=== PATIENT | male | born 1945 | race Caucasian/White ===

== ENCOUNTER 2017-12-19 02:02 | Emergency (ER) | payer OTHER ==
[~2017-12-19] VITALS: Ht 172.7 cm; Wt 81.6 kg
--- NOTE | 2017-12-19 02:04 | NUR ---
PT GUNNAR BLS. TAKEN TO BED 10
[2017-12-19 02:05] VITALS: BP 130/78
--- NOTE | 2017-12-19 02:05 | NUR ---
72/M BIBA W C/O " I CANNOT STOP SHAKING". PT STATES " I CANNOT STOP SHAKING AND I FEEL LIKE IM GOING TO PASS OUT". NO ACUTE RESPIRATORY DISTRESS NOTED AT THIS TIME. -STROKE SYMPTOMS, DENIES SOB/CP/COUGH, DENIES N/V/D. ACCUCHECK AT 155, ER MADE AWARE. PMH: DM, COPD, DEPRESSION
--- NOTE | 2017-12-19 02:30 | NUR ---
Patient being evaluated by physician at bedside.
--- NOTE | 2017-12-19 02:50 | NUR ---
Patient discharged with v/s stable. Written and verbal after care instructions given and explained. Patient alert, oriented and verbalized understanding of instructions. Ambulatory with steady gait. All questions addressed prior to discharge. ID band removed. Patient advised to follow up with PMD. Rx of COGENTIN given. Patient educated on indication of medication including possible reaction and side effects. Opportunity to ask questions provided and answered.
[2017-12-19 03:03] VITALS: BP 123/76
== END 2017-12-19 02:50 | disposition home or self-care (01) ==
LOC: MED 02:02
DX: R25.1 Tremor, unspecified (principal); J44.9 Chronic obstructive pulmonary disease, unspecified; F17.210 Nicotine dependence, cigarettes, uncomplicated; E11.9 Type 2 diabetes mellitus without complications; Z88.5 Allergy status to narcotic agent; Z88.8 Allergy status to other drugs, medicaments and biological substances
CPT/HCPCS: 82948; 99283

== ENCOUNTER 2018-01-19 17:54 | Inpatient (IN) | payer OTHER ==
[~2018-01-19] VITALS: Ht 172.7 cm; Wt 80.7 kg
[2018-01-19 18:05] VITALS: BP 114/69
[2018-01-19] MEDS ORDERED: IPRATROPIUM 0.02% 0.5 MG/2.5 ML NEBU INH ONE (18:25)
[2018-01-19] MEDS ORDERED: methylPREDNISolone SS 125 MG/2 ML VIAL IVP ONE (18:25)
[2018-01-19] MEDS ORDERED: ALBUTEROL 0.083% 2.5 MG/3 ML NEBU INH ONE (18:25)
[2018-01-19] MEDS ORDERED: NACL 0.9% 500 ML IV SCH (18:25)
--- NOTE | 2018-01-19 18:35 | NUR ---
PATIENT BIB EMS WITH COUGH, SOB, ANXIETY X 2 DAYS WORSE TODAY, HX; DM, ANXIETY AAOX4; SOB, RHOCHI LUNG SOUNDS, COUGHING NOTED, O2 SAT 96%, HR EVEN AND REGULAR; PT DENIES ANY FEVER, CP, AT THIS TIME; DENIES PAIN, VSS, DENIES N/V/D; SKIN IS PINK/WARM/DRY; PATIENT POSITIONED FOR COMFORT; HOB ELEVATED; BEDRAILS UP X2; BED DOWN. ER MD MADE AWARE OF PT STATUS.
--- NOTE | 2018-01-19 18:40 | NUR ---
Patient being evaluated by physician at bedside.
--- NOTE | 2018-01-19 18:45 | NUR ---
PT REFUSED ABG. SARAHI WINTERS AWARE. HHN TX GIVEN. CLEAR BS. NO SOB OR DISTRESS NOTED.
--- NOTE | 2018-01-19 18:49 | NUR ---
PT TOOK OFF HHN TX AND DIDNT FINISHE IT. PT SAID HE WANTS TO THROW UP. EMT AT BEDSIDE.
[2018-01-19 18:57] LABS: BASOPHILS # (AUTO) 0.4 K/uL (0.00-0.22); EOSINOPHILS # (AUTO) 0.2 K/uL (0-0.4); HEMATOCRIT 46.8 % (36-52); HEMOGLOBIN 15.2 g/dL (12.0-18.0); LYMPHOCYTES # (AUTO) 2.2 K/uL (2.0-11.5); MEAN CORPUSCULAR HEMOGLOBIN 29 pg (27-31); MEAN CORPUSCULAR HGB CONC 33 g/dL (33-37); MEAN CORPUSCULAR VOLUME 88 fL (80-94); MONOCYTES # (AUTO) 0.7 K/uL (0.8-1.0); NEUTROPHILS # (AUTO) 8.2 K/uL (1.8-7.7); PLATELET COUNT (AUTO) 315 K/uL (140-450); RED CELL DISTRIBUTION WIDTH 14.6 % (11.6-13.7); WHITE BLOOD COUNT (AUTO) 11.7 K/uL (4.8-10.8)
[2018-01-19 19:11] LABS: CARBON DIOXIDE 24.6 mmol/L (21-32); CHLORIDE 104 mmol/L (98-107); CREATININE 1.2 mg/dL (0.7-1.3); GLUCOSE 156 mg/dL (74-106); POTASSIUM 3.6 mmol/L (3.5-5.1); SODIUM SERUM 139 mmol/L (136-145); UREA NITROGEN, BLOOD 23 mg/dL (7-18)
[2018-01-19 19:16] LABS: ALBUMIN 3.4 g/dL (3.4-5.0); ASPARTATE AMINOTRANSFERASE 20 U/L (15-37); TOTAL BILIRUBIN 0.5 mg/dL (0.0-1.0)
--- NOTE | 2018-01-19 19:20 | NUR ---
RECEIVED REPORT FROM SARAHI MENG. PT RESTING IN BED COMFORTABLY, RESPIRATIONS EVEN AND UNLABORED, NO S/S OF ACUTE DISTRESS.
[2018-01-19 19:40] LABS: PROTHROMBIN TIME 9.7 secs (10.8-13.4)
[2018-01-19] MEDS ORDERED: ASPIRIN 81 MG TAB.CHEW PO ONE (19:45)
[2018-01-19] MEDS ORDERED: ASPIRIN 81 MG TAB.CHEW ONE (20:00)
[2018-01-19] MEDS ORDERED: DOCUSATE SODIUM 100 MG GELCAP PO PRN (20:45)
[2018-01-19] MEDS ORDERED: HYDROcodone/APAP 7.5/325 MG 1 TAB PO PRN (20:45)
[2018-01-19] MEDS ORDERED: KETOROLAC 30 MG/ML VIAL IVP PRN (20:45)
[2018-01-19] MEDS ORDERED: ONDANSETRON 4 MG/2 ML VIAL IM/IVP PRN (20:45)
[2018-01-19] MEDS ORDERED: ACETAMINOPHEN 325 MG TAB PO PRN (20:45)
--- NOTE | 2018-01-19 20:57 | NUR ---
Dr. Berrios evaluating patient at bedside.
--- NOTE | 2018-01-19 21:00 | NUR ---
PT STATED HE WAS UNABLE TO PROVIDE URINE SAMPLE AT THIS TIME, WILL ENDORSE TO ABA RN
--- NOTE | 2018-01-19 21:10 | NUR ---
Patient will be admitted to care of [facility]. Admited to TELE. Will go to room 120B. Belongings list completed. Report to SARAHI MÉNDEZ AT BEDSIDE
[2018-01-19 21:20] VITALS: BP 148/68
--- NOTE | 2018-01-19 21:20 | NUR ---
ADMITTED PATIENT TO TELE UNIT, AWAKE ALERT ORIENTEDX4, NO S/S OF DISTRESS NOTED, RESPIRATION EVEN AND UNLABORED, ON ROOM AIR. TELE MONITOR PLACED ON PATIENT. IV ON RT WRIST PATENT AND INTACT, FLUSHED WITH 10CC NS. PLAN OF CARE DISCUSSED, PATIENT VERBALIZED UNDERSTANDING. CALL LIGHT WITHIN REACH, SAFETY MEASURE ENSURED, WILL CONTINUE TO MONITOR.
[2018-01-19] MEDS ORDERED: ALBUTEROL SULFATE/IPRATROPIU 3 ML SOL IH PRN (21:35)
[2018-01-19 21:36] LABS: CHOL/HDL RATIO 7.5 (1-4.5); MAGNESIUM 2.1 mg/dL (1.8-2.4); PHOSPHORUS 3.1 mg/dL (2.5-4.9); THYROID STIMULATING HORMONE 1.74 uIU/mL (0.34-3.74)
[2018-01-19] MEDS ORDERED: DEXTROSE 50% 50 ML SYR IVP PRN (21:45)
[2018-01-19] MEDS ORDERED: ZOLPIDEM 5 MG TAB PO SCH (22:20)
[2018-01-19] MEDS: NACL 0.9% 1,000 ML IV SCH (22:24)
[2018-01-20] VITALS: BP 139/79
--- NOTE | 2018-01-20 01:33 | NUR ---
PATIENT ASKED FOR FOOD, SANDWICH OFFERED. NO S/S OF DISTRESS NOTED, RESPIRATION EVEN AND UNLABORED, CALL LIGHT WITHIN REACH, SAFETY MEASURE ENSURED, WILL CONTINUE TO MONITOR.
--- NOTE | 2018-01-20 03:50 | NUR ---
PATIENT IS SLEEPING, NO S/S OF DISTRESS NOTED, RESPIRATION EVEN AND UNLABORED, CALL LIGHT WITHIN REACH, SAFETY MEASURE ENSURED, WILL CONTINUE TO MONITOR.
[2018-01-20 04:00] VITALS: BP 149/73
[2018-01-20] MEDS: NACL 0.9% 1,000 ML IV SCH ×3 (04:09→21:16)
[2018-01-20] MEDS: LORazepam 2 MG/ML VIAL IVP PRN ×3 (05:12→15:54)
--- NOTE | 2018-01-20 05:15 | NUR ---
STATED," I AM HAVING ANXIETY ATTACK." MADE DR. FERNANDEZ AWARE. RECEIVED ORDER OF ATIVAN. WILL ADMINISTER ORDERED.
[2018-01-20 06:15] LABS: BASOPHILS # (AUTO) 0.1 K/uL (0.00-0.22); BASOPHILS % (AUTO) 0.7 % (0.0-2.0); EOSINOPHILS # (AUTO) 0.1 K/uL (0-0.4); EOSINOPHILS % (AUTO) 0.7 % (0.0-4.0); HEMATOCRIT 42.3 % (36-52); LYMPHOCYTES # (AUTO) 0.8 K/uL (2.0-11.5); LYMPHOCYTES % (AUTO) 8.3 % (20.5-51.1); MEAN CORPUSCULAR HEMOGLOBIN 29 pg (27-31); MEAN CORPUSCULAR HGB CONC 33 g/dL (33-37); MEAN CORPUSCULAR VOLUME 89 fL (80-94); MONOCYTES % (AUTO) 0.5 % (1.7-9.3); NEUTROPHILS # (AUTO) 8.4 K/uL (1.8-7.7); NEUTROPHILS % (AUTO) 89.8 % (42.2-75.2); PLATELET COUNT (AUTO) 312 K/uL (140-450); RED BLOOD CELL COUNT(AUTO) 4.75 MIL/uL (4.20-6.10); RED CELL DISTRIBUTION WIDTH 14.2 % (11.6-13.7); WHITE BLOOD COUNT (AUTO) 9.4 K/uL (4.8-10.8)
[2018-01-20 07:20] LABS: APPEARANCE,URINE CLEAR (CLEAR); BILIRUBIN,URINE NEGATIVE (NEGATIVE); BLOOD, URINE NEGATIVE (NEGATIVE); COLOR,URINE YELLOW (YELLOW); LEUKOCYTE ESTERASE ,URINE NEGATIVE (NEGATIVE); NITRITE, URINE NEGATIVE (NEGATIVE); UGLUCOSE NEGATIVE (NEGATIVE)
--- NOTE | 2018-01-20 07:20 | NUR ---
ENDORSED PLAN OF CARE TO DAY SHIFT RN, PATIENT IS IN STABLE CONDITION.
--- NOTE | 2018-01-20 07:21 | NUR ---
RECEIVED REPORT FROM BUTADIENE CONVERTER UTILITY OPERATOR NURSE HONEY AT BEDSIDE FOR CONTINUITY OF CARE. PT IS AWAKE AND ORIENTED X4. INTRODUCED SELF AND UPDATED BOARD. NO SIGNS OF RESPIRATORY DISTRESS. PT ON RA. O2 SAT 95%. DENIES SOB. PTS STATED "I AM BREATHING MUCH BETTER NOW." R/T CAME IN FOR BREATHING TX. PT REFUSED TX STATED "HE IS DOING FINE" DENIES PAIN. PT GOT UP TO USE RESTROOM. WALKED WITH STEADY GAIT AND STANDBY ASSIST. CALL LIGHT WITHIN REACH. WILL CONTINUE TO MONITOR.
[2018-01-20] MEDS: BLOOD GLUCOSE MONITORING 1 DEV DEV FS SCH ×4 (07:32→20:49)
[2018-01-20] MEDS: INSULIN LISPRO SLIDING SCALE 100 UNITS/ML VIAL SUBQ PRN ×3 (07:33→20:54)
[2018-01-20 08:00] VITALS: BP 134/66
[2018-01-20] MEDS: METOPROLOL 25 MG TAB PO SCH ×2 (08:58→21:00)
[2018-01-20] MEDS: ATORVASTATIN 80 MG TAB PO SCH (08:58)
[2018-01-20] MEDS: LISINOPRIL 5 MG TAB PO SCH (08:58)
[2018-01-20] MEDS: ECOTRIN 81 MG TABEC PO SCH (08:58)
[2018-01-20] MEDS ORDERED: ATORVASTATIN 20 MG TAB PO SCH (09:00)
--- NOTE | 2018-01-20 09:02 | NUR ---
PT IS HAVING A PROCEDURE AT THIS TIME. PT IS ON RA AND NOT SOB/RESPIRATORY DISTRESS. WILL CHECK ON PRN TX ON A LATER TIME.
[2018-01-20 09:35] LABS: CARBON DIOXIDE 22.9 mmol/L (21-32); CHLORIDE 104 mmol/L (98-107); CREATININE 1.2 mg/dL (0.7-1.3); GLUCOSE 215 mg/dL (74-106); POTASSIUM 3.9 mmol/L (3.5-5.1); SODIUM SERUM 136 mmol/L (136-145); UREA NITROGEN, BLOOD 20 mg/dL (7-18)
--- NOTE | 2018-01-20 11:04 | NUR ---
PT WAS NOT SOB OR IN RESPIRATORY DISTRESS DID NOT NEED TX. SP02 97 HR 80
[2018-01-20 12:00] VITALS: BP 143/55
--- NOTE | 2018-01-20 12:36 | NUR ---
PATIENT HAS BEEN SCREENED AND CATEGORIZED HIGH NUTRITION RISK. PATIENT WILL BE SEEN WITHIN 1-2 DAYS OF ADMISSION. 01/20/18 - 01/21/[address]
--- NOTE | 2018-01-20 15:13 | NUR ---
01/20/18 RD INITIAL ASSESSMENT COMPLETED PLEASE REFER TO NUTRITION ASSESSMENT UNDER CARE ACTIVITY FOR ESTIMATED NUTRITIONAL NEEDS. 1. CONTINUE CARDIAC DIET ORDER TOLERATED 2. RECOMMEND ADDING CCHO 60 GM ONTO CURRENT DIET ORDER D/T ELEVATED GLUCOSE LEVELS 3. CONSIDER TEXTURE MODIFICATIONS PER SWALLOW EVALUATION RECOMMENDATIONS NEEDED. 4. RD TO FOLLOW-UP 3-5 DAYS, MODERATE RISK TOISN GRAY RD
[2018-01-20 16:00] VITALS: BP 115/50
--- NOTE | 2018-01-20 18:55 | NUR ---
* ST NOTE * Pt seen at bedside. Pt alert, cooperative and engaged throughout session, reporting no c/o pain at this time. Bedside dysphagia and oral mechanism exams completed. See evaluation report for further details. Pt tolerating 5/5 alternating PO trials of regular solid saltine crackers as well as 6/6 alternating PO trials of thin liquid milk via a straw, all w/o s/s of aspiration or choking. Pt exhibiting clear voicing WFL w/o wet or gargly vocal quality after PO intake. Pt education completed regarding aspiration precautions and safe swallow compensatory strategies pt could utilize to aid w/swallow function, w/pt verbalizing understanding and agreement. It is thus recommended pt remain on current PO diet consistency w/pt agreeable. No further ST follow up recommended at this time. Pt and caregivers/charge nurse education completed regarding results of evaluation; benefits of abiding by aspiration precautions and recommended PO diet consistency; and prognosis for improvement; with pt and caregivers/charge nurse verbalizing understanding and agreement w/clinician's recommendations. Recommend: - Continuation of current PO diet consistency of REGULAR SOLIDS W/THIN LIQUIDS for all meals - Maintain STRICT ASPIRATION PRECAUTIONS during pt's PO intake and PO medication administration 2/2 to pt's c/o dysphagia - Pt safe for whole pill PO medication administration or crushed in puree or m/s textures No further ST follow up recommended at this time. G8996 CI G8997 CH G8998 NOMS Level 1 Time In/Out 18:05 - 18:50
--- NOTE | 2018-01-20 19:20 | NUR ---
ENDORSED PT TO KEYBOARD ACTION ASSEMBLER NURSE HONEY AT BEDSIDE FOR CONTINUITY OF CARE. PT IN STABLE CONDITION.
--- NOTE | 2018-01-20 19:30 | NUR ---
RECEIVED REPORT FROM DAY SHIFT, PATIENT RESTING IN BED, NO S/S OF DISTRESS NOTED, RESPIRATION EVEN AND UNLABORED, ON ROOM AIR. IV PATENT AND INTACT, INFUSING NS AT 120ML/HR. PATIENT ASKED," WHEN IS MY ANXIETY MEDICATION DUE." INFORMED PATIENT THAT IT WAS DUE AROUND 1999. PATIENT SAID OKAY. CALL LIGHT WITHIN REACH, SAFETY MEASURE ENSURED, WILL CONTINUE TO MONITOR.
[2018-01-20 20:00] VITALS: BP 131/57
[2018-01-20] MEDS: ZOLPIDEM 5 MG TAB PO SCH (21:00)
--- NOTE | 2018-01-20 21:09 | NUR ---
PATIENT WAS SLEEPING, BUT EASY TO AROUSE, TOLD HIM IT WAS TIME FOR HIS NIGHT TIME MEDICATION, PATIENT SAID OKAY. OPENED MEDICATION AND CUT THE LOPRESSOR ORDERED, PUT MEDICATIONS IN PATIENT'S MOUTH, PATIENT SPIT MEDICATION OUT. PATIENT GOT UP AND WENT TO THE BATHROOM, WHEN HE CAME BACK TO BED, HE SAID," I DON'T WANT THAT." EDUCATION PROVIDED, BUT PATIENT STILL REFUSED. MADE DR. FERNANDEZ AWARE THAT PATIENT REFUSED MEDICATION AND IS SLEEPING NOW, SAID," IT'S OKAY."
--- NOTE | 2018-01-20 23:55 | NUR ---
PATIENT IS SLEEPING, NO S/S OF DISTRESS NOTED, RESPIRATION EVEN AND UNLABORED, CALL LIGHT WITHIN REACH, SAFETY MEASURE ENSURED, WILL CONTINUE TO MONITOR.
[2018-01-21] VITALS: BP 139/69
--- NOTE | 2018-01-21 02:05 | NUR ---
NO CHANGE IN CONDITION, PATIENT IS SLEEPING, RESPIRATION EVEN AND UNLABORED, CALL LIGHT WITHIN REACH, SAFETY MEASURE ENSURED, WILL CONTINUE TO MONITOR.
--- NOTE | 2018-01-21 03:01 | NUR ---
IV PUMP BEEPING, UPON ASSESSMENT, IV TUBE WAS DISCONNECTED FROM IV CATHETER, BLOOD ON THE FLOOR, AND BED. RECONNECTED IV TUBE AND CLEANED THE PATIENT. PATIENT STATED," I AM FINE. I WENT TO THE BATHROOM, I FORGOT I WAS CONNECTED." PATIENT IS SLEEPING IN BED, NO S/S OF DISTRESS NOTED, RESPIRATION EVEN AND UNLABORED, CALL LIGHT WITHIN REACH, SAFETY MEASURE ENSURED, WILL CONTINUE TO MONITOR.
[2018-01-21 04:00] VITALS: BP 143/66
[2018-01-21 06:21] LABS: T4 (THYROXINE) 6.5 ug/dL (4.5-12.0)
[2018-01-21] MEDS: BLOOD GLUCOSE MONITORING 1 DEV DEV FS SCH ×4 (06:32→20:51)
--- NOTE | 2018-01-21 07:10 | NUR ---
RECEIVED REPORT FROM TOLL TRANSMISSION WORKER NURSE HONEY AT BEDSIDE FOR CONTINUITY OF CARE. PT IS ASLEEP WITH NO SIGNS OF DISTRESS. ON RA. O2 SAT 98%. PT DENIES PAIN OR SOB. BED IN LOW POSITION, WHEELS LOCKED, CALL LIGHT WITHIN REACH. WILL CONTINUE TO MONITOR.
[2018-01-21 07:31] LABS: BASOPHILS # (AUTO) 0.4 K/uL (0.00-0.22); BASOPHILS % (AUTO) 3.3 % (0.0-2.0); EOSINOPHILS # (AUTO) 0.1 K/uL (0-0.4); EOSINOPHILS % (AUTO) 0.7 % (0.0-4.0); HEMATOCRIT 39.3 % (36-52); HEMOGLOBIN 12.8 g/dL (12.0-18.0); LYMPHOCYTES # (AUTO) 2.4 K/uL (2.0-11.5); LYMPHOCYTES % (AUTO) 17.8 % (20.5-51.1); MEAN CORPUSCULAR HEMOGLOBIN 30 pg (27-31); MEAN CORPUSCULAR HGB CONC 33 g/dL (33-37); MEAN CORPUSCULAR VOLUME 90 fL (80-94); MONOCYTES # (AUTO) 1.3 K/uL (0.8-1.0); MONOCYTES % (AUTO) 9.2 % (1.7-9.3); NEUTROPHILS # (AUTO) 9.4 K/uL (1.8-7.7); PLATELET COUNT (AUTO) 237 K/uL (140-450); RED BLOOD CELL COUNT(AUTO) 4.35 MIL/uL (4.20-6.10); RED CELL DISTRIBUTION WIDTH 14.6 % (11.6-13.7); WHITE BLOOD COUNT (AUTO) 13.6 K/uL (4.8-10.8)
[2018-01-21 08:00] VITALS: BP 144/61
[2018-01-21 08:46] LABS: ANION GAP 12.3 (8-16); CARBON DIOXIDE 22.9 mmol/L (21-32); CHLORIDE 110 mmol/L (98-107); GLUCOSE 102 mg/dL (74-106); POTASSIUM 4.2 mmol/L (3.5-5.1); SODIUM SERUM 141 mmol/L (136-145)
[2018-01-21 08:47] LABS: UREA NITROGEN, BLOOD 25 mg/dL (7-18)
--- NOTE | 2018-01-21 09:52 | NUR ---
PT OFF UNIT FOR CT SCAN. LEFT WITH TECH VIA WHEELCHAIR IN STABLE CONDITION.
[2018-01-21] MEDS: METOPROLOL 25 MG TAB PO SCH ×2 (10:14→21:00)
[2018-01-21] MEDS: LISINOPRIL 5 MG TAB PO SCH (10:14)
[2018-01-21] MEDS: ATORVASTATIN 80 MG TAB PO SCH (10:14)
[2018-01-21] MEDS: ECOTRIN 81 MG TABEC PO SCH (10:15)
--- NOTE | 2018-01-21 10:15 | NUR ---
PT RETURNED TO UNIT FROM CT. REPORT GIVEN THAT PT WAS NAUSEOUS AND VOMITED. ADMINISTERED ZOFRAN IVP FOR NAUSEA. AND ADMINISTERED SCHEDULED MEDS. PT TOLERATED MEDS WELL. PT GOT UP TO USE BATHROOM WITH STEADY GAIT. BACK TO BED. RESTING COMFORTABLY. NO SIGNS OF DISTRESS. CALL LIGHT WITHIN REACH. WILL CONTINUE TO MONITOR.
[2018-01-21 12:00] VITALS: BP 149/68
[2018-01-21] MEDS ORDERED: LORazepam 0.5 MG TAB PO SCH (12:00)
--- NOTE | 2018-01-21 12:16 | NUR ---
PT STATED HE IS FEELING ANXIOUS AND REQUESTED ATIVAN. ADMINISTERED 0.5MG ATIVAN PO. PT TOLERATED WELL. WILL CONTINUE TO MONITOR.
--- NOTE | 2018-01-21 14:00 | NUR ---
PT BACK FROM ESOPHAGRAM X-RAY. PT REFUSED TO EAT LUNCH PROVIDED. OFFERED CHICKEN SANDWICH PT REFUSED. ASKED FOR HAM SANDWICH. CALLED [facility] AND LEFT MESSAGE FOR HAM SANDWICH. PT IS NOW RESTING IN BED WATCHING TV. NO SIGNS OF DISTRESS. WILL CONTINUE TO MONITOR.
[2018-01-21 16:00] VITALS: BP 131/52
[2018-01-21] MEDS: INSULIN LISPRO SLIDING SCALE 100 UNITS/ML VIAL SUBQ PRN ×2 (17:45→20:56)
--- NOTE | 2018-01-21 19:15 | NUR ---
ENDORSED PT TO RECIPROCATING DRILL OPERATOR NURSE AILYN AT BEDSIDE FOR CONTINUITY OF CARE. PT IN STABLE CONDITION.
--- NOTE | 2018-01-21 19:16 | NUR ---
RECEIVED REPORT FROM DAY NURSE NOLAN MCCLAIN, PT IN STABLE CONDITION. NO S/S OF DISTRESS NOTED. PT AAOX4, ON ROOM AIR. IV TO L FA 22G, SALINE LOCK, PATENT AND INTACT. 2ND IV TO L FA 18G, SALINE LOCK, PATENT AND INTACT. SKIN IS WARM AND DRY TO TOUCH, INTACT. RR EVEN/UNLABORED. BOWEL SOUNDS PRESENT. INITIAL ASSESSMENT COMPLETED. PLAN OF CARE DISCUSSED WITH PT AT BEDSIDE, VERBALIZED UNDERSTANDING. ALL SAFETY PRECAUTIONS MET, CALL LIGHT WITHIN REACH, BOARD UPDATED, WILL CONTINUE TO MONITOR
[2018-01-21 20:00] VITALS: BP 126/48
[2018-01-21] MEDS: ZOLPIDEM 5 MG TAB PO SCH (20:52)
--- NOTE | 2018-01-21 22:30 | NUR ---
PT RESTING COMFORTABLY IN BED,NO S/S OF DISTRESS NOTED. ALL SAFETY PRECAUTIONS MET, WILL CONTINUE TO MONITOR.
[2018-01-22] VITALS: BP 148/68
--- NOTE | 2018-01-22 01:30 | NUR ---
PT RESTING COMFORTABLY IN BED,NO S/S OF DISTRESS NOTED. ALL SAFETY PRECAUTIONS MET, WILL CONTINUE TO MONITOR.
--- NOTE | 2018-01-22 02:11 | NUR ---
PT RESTING COMFORTABLY IN BED,NO S/S OF DISTRESS NOTED. ALL SAFETY PRECAUTIONS MET, WILL CONTINUE TO MONITOR.
[2018-01-22 04:00] VITALS: BP 136/69
[2018-01-22] MEDS: BLOOD GLUCOSE MONITORING 1 DEV DEV FS SCH ×4 (06:32→21:00)
--- NOTE | 2018-01-22 07:21 | NUR ---
REPORT GIVEN TO DAY SHIFT RN FOR CONTINUITY OF CARE, PT IN STABLE CONDITION.
--- NOTE | 2018-01-22 07:30 | NUR ---
ENDORSEMENT RECEIVED FROM WORLD LANGUAGE TEACHER NURSE. PATIENT IS AWAKE, ALERT. RESPIRATION EVEN, UNLABOR ON ROOM AIR. SKIN DRY AND WARM. IV PATENT AND INTACT. DENIED PAIN, N/V AT THIS TIME. PLAN OF CARE WAS DISCUSSED WITH PATIENT. BED AT LOW POSITION, SIDE RAILS UP, CALL LIGHT WITHIN REACH
[2018-01-22 08:00] VITALS: BP 143/64
--- NOTE | 2018-01-22 08:21 | NUR ---
PATIENT AWAKE AND ALERT. SITTING UP IN BED. PATIENT STATES NO SOB. NO RESPIRATORY DISTRESS NOTED AT THIS TIME. NO TX INDICATED AT THIS TIME.
[2018-01-22] MEDS: ATORVASTATIN 80 MG TAB PO SCH (08:47)
[2018-01-22] MEDS: ECOTRIN 81 MG TABEC PO SCH (08:48)
[2018-01-22] MEDS: METOPROLOL 25 MG TAB PO SCH ×2 (08:48→20:58)
[2018-01-22] MEDS: LISINOPRIL 5 MG TAB PO SCH (08:48)
[2018-01-22 11:10] VITALS: BP 148/64
--- NOTE | 2018-01-22 11:10 | NUR ---
PATIENT AWAKE, ALERT. COMPLAINED OF DIFFICULTY SWALLOW, DYSPNEA AND BEING "ANTSY". DR. ISABEL WAS MADE AWARE. VS WAS STABLE, NO WORK OF BREATHING IS NOTED
[2018-01-22] MEDS ORDERED: LORazepam 1 MG TAB PO SCH (11:23)
--- NOTE | 2018-01-22 11:45 | NUR ---
PATIENT IS SLEEPING COMFORTABLY, EASILY AROUSABLE BY NAME. RESPIRATION EVEN, UNLABOR ON ROOM AIR. MED WAS GIVEN PER ORDER. CALL LIGHT WITHIN REACH
[2018-01-22] MEDS: INSULIN LISPRO SLIDING SCALE 100 UNITS/ML VIAL SUBQ PRN ×2 (12:29→21:02)
[2018-01-22] MEDS ORDERED: ALBUTEROL SULFATE/IPRATROPIU 3 ML SOL IH PRN (14:10)
--- NOTE | 2018-01-22 14:29 | NUR ---
PATIENT AWAKE, ALERT, WATCHING TV COMFORTABLY IN BED. RESPIRATION EVEN, UNLABOR ON ROOM AIR. NO DISTRESS NOTED AT THIS TIME. CALL LIGHT WITHIN REACH
[2018-01-22] MEDS ORDERED: AZITHROMYCIN 250 MG TAB PO SCH (15:00)
[2018-01-22] MEDS: methylPREDNISolone SS 125 MG/2 ML VIAL IVP SCH ×2 (15:18→23:34)
[2018-01-22 15:49] VITALS: BP 116/63
--- NOTE | 2018-01-22 16:01 | NUR ---
PATIENT AWAKE, ALERT, WATCHING TV COMFORTABLY IN BED. RESPIRATION EVEN, UNLABOR. VS IS STABLE. NO DISTRESS NOTED AT THIS TIME. DENIED PAIN, N/V. CALL LIGHT WITHIN REACH
[2018-01-22] MEDS: ALBUTEROL SULFATE/IPRATROPIU 3 ML SOL IH SCH (18:00)
--- NOTE | 2018-01-22 18:20 | NUR ---
PATIENT AWAKE, ALERT. RESPIRATION EVEN, UNLABOR ON ROOM AIR. IV PATENT AND INTACT. NO DISTRESS NOTED AT THIS TIME. CALL LIGHT WITHIN REACH
[2018-01-22] MEDS ORDERED: IPRATROPIUM 0.02% 0.5 MG/2.5 ML NEBU INH SCH (19:00)
--- NOTE | 2018-01-22 19:27 | NUR ---
ENDORSEMENT GIVEN TO THE WATCHGUARD NURSE. PATIENT IS STABLE AT THIS TIME
[2018-01-22 20:00] VITALS: BP 166/67
[2018-01-22] MEDS: ZOLPIDEM 5 MG TAB PO SCH (20:58)
[2018-01-23] VITALS: BP 136/64
[2018-01-23 04:00] VITALS: BP 135/62
[2018-01-23] MEDS: methylPREDNISolone SS 125 MG/2 ML VIAL IVP SCH ×2 (06:15→20:42)
[2018-01-23] MEDS: PANTOPRAZOLE 40 MG TABEC PO SCH (06:15)
[2018-01-23] MEDS: INSULIN LISPRO SLIDING SCALE 100 UNITS/ML VIAL SUBQ PRN ×4 (06:20→20:52)
[2018-01-23] MEDS: BLOOD GLUCOSE MONITORING 1 DEV DEV FS SCH ×4 (06:39→20:48)
--- NOTE | 2018-01-23 06:41 | NUR ---
TEST DESKMAN ATTEMPTED BLOOD DRAW 4X, UNSUCCESSFUL.
--- NOTE | 2018-01-23 07:22 | NUR ---
REPORT GIVEN TO DAY SHIFT NURSE FOR CONTINUITY OF CARE, PT IN STABLE CONDITION
--- NOTE | 2018-01-23 07:30 | NUR ---
ENDORSEMENT RECEIVED FROM MERCHANDISING ASSISTANT NURSE. PATIENT IS AWAKE, ALERT. RESPIRATION EVEN, UNLABOR ON ROOM AIR. SKIN DRY AND WARM. IV PATENT AND INTACT. DENIED PAIN, N/V AT THIS TIME. PLAN OF CARE WAS DISCUSSED WITH PATIENT. BED AT LOW POSITION, SIDE RAILS UP, CALL LIGHT WITHIN REACH.
[2018-01-23] MEDS: ALBUTEROL SULFATE/IPRATROPIU 3 ML SOL IH SCH ×3 (07:51→18:00)
--- NOTE | 2018-01-23 07:51 | NUR ---
PATIENT AWAKE, ALERT AND ORIENTED. ASSESSED PATIENTS RESPIRATORY STATUS. NO RESPIRATORY DISTRESS NOTED. PATIENT REFUSED BREATHING TX. INFORMED PATIENT OF MEDICATION USE. PATIENT STATES THAT BREATHING TREATMENTS MAKE HIM VOMIT AND HE DOES NOT WANT A BREATHING TREATMENT. PATIENT STATES HE IS NOT SOB. NO RESPIRATORY DISTRESS NOTED AT THIS TIME.
[2018-01-23 08:00] VITALS: BP 123/72
[2018-01-23] MEDS: AZITHROMYCIN 250 MG TAB PO SCH (08:35)
[2018-01-23] MEDS: ATORVASTATIN 80 MG TAB PO SCH (08:35)
[2018-01-23] MEDS: METOPROLOL 25 MG TAB PO SCH ×2 (08:36→20:43)
[2018-01-23] MEDS: LISINOPRIL 5 MG TAB PO SCH (08:36)
[2018-01-23] MEDS: ECOTRIN 81 MG TABEC PO SCH (08:36)
--- NOTE | 2018-01-23 10:22 | NUR ---
CONSENT FOR EGD WAS OBTAINED AT BEDSIDE, SIGNED BY PATIENT. PATIENT VERBALIZED UNDERSTANDING FOR THE RISKS AND BENEFITS OF THE PROCEDURE.
[2018-01-23 11:39] LABS: BASOPHILS # (AUTO) 0.2 K/uL (0.00-0.22); BASOPHILS % (AUTO) 1.2 % (0.0-2.0); EOSINOPHILS # (AUTO) 0.1 K/uL (0-0.4); EOSINOPHILS % (AUTO) 0.7 % (0.0-4.0); HEMATOCRIT 43.6 % (36-52); HEMOGLOBIN 14.1 g/dL (12.0-18.0); LYMPHOCYTES # (AUTO) 1.1 K/uL (2.0-11.5); MEAN CORPUSCULAR HEMOGLOBIN 29 pg (27-31); MEAN CORPUSCULAR HGB CONC 32 g/dL (33-37); MEAN CORPUSCULAR VOLUME 88 fL (80-94); MONOCYTES # (AUTO) 0.2 K/uL (0.8-1.0); MONOCYTES % (AUTO) 1.4 % (1.7-9.3); PLATELET COUNT (AUTO) 336 K/uL (140-450); RED BLOOD CELL COUNT(AUTO) 4.93 MIL/uL (4.20-6.10); RED CELL DISTRIBUTION WIDTH 14.2 % (11.6-13.7); WHITE BLOOD COUNT (AUTO) 14.6 K/uL (4.8-10.8)
[2018-01-23 11:51] LABS: ANION GAP 10.9 (8-16); CARBON DIOXIDE 26.3 mmol/L (21-32); CHLORIDE 104 mmol/L (98-107); CREATININE 1.2 mg/dL (0.7-1.3); GLUCOSE 236 mg/dL (74-106); POTASSIUM 4.2 mmol/L (3.5-5.1); SODIUM SERUM 137 mmol/L (136-145); UREA NITROGEN, BLOOD 28 mg/dL (7-18)
[2018-01-23 11:58] LABS: PHOSPHORUS 3.1 mg/dL (2.5-4.9)
[2018-01-23 12:23] LABS: LYMPHOCYTES % (AUTO) 7.5 % (20.5-51.1); NEUTROPHILS % (AUTO) 89.2 % (42.2-75.2)
[2018-01-23 12:28] VITALS: BP 139/68
--- NOTE | 2018-01-23 12:30 | NUR ---
PATIENT AWAKE, ALERT. RESPIRATION EVEN, UNLABOR. DENIED N/V AT THIS TIME. NO DISTRESS NOTED. MED WAS GIVEN PER ORDER.
--- NOTE | 2018-01-23 13:05 | NUR ---
PATIENT QUIET AND RESTING. EASILY AROUSABLE WHEN SPOKEN TO. PATIENT REFUSING BREATHING TREATMENT. HHN NOT GIVEN AT THIS TIME. NO SOB OR RESPIRATORY DISTRESS NOTED AT THIS TIME.
--- NOTE | 2018-01-23 15:26 | NUR ---
PATIENT IS SLEEPING COMFORTABLY. RESPIRATION EVEN, UNLABOR ON ROOM AIR. NO DISTRESS NOTED AT THIS TIME.
[2018-01-23 16:00] VITALS: BP 119/59
--- NOTE | 2018-01-23 17:59 | NUR ---
PATIENT AWAKE, ALERT, EATING DINNER, AND WATCHING TV COMFORTABLY IN BED. RESPIRATION EVEN, UNLABOR ON ROOM AIR. NO SIGNS OF DISTRESS NOTED. PATIENT REQUESTED TO HAVE AN ATIVAN AND STATED " I DON'T FEEL WELL". WILL NOTIFY MD Addendum: 01/23/18 at 1828 by Karlene Lo RN DR. CORTEZ WAS MADE AWARE OF PATIENT'S REQUEST, ADVISED TO CONTINUE TO MONITOR
--- NOTE | 2018-01-23 19:06 | NUR ---
ENDORSEMENT GIVEN TO THE ASSEMBLER CARBON BRUSHES NURSE. PATIENT IS STABLE AT THIS TIME
--- NOTE | 2018-01-23 19:26 | NUR ---
PT REFUSED HHN MEDICATION TREATMENT PT IN NO RESP. DISTRESS, HR 67 RR 16 SAO2 95 ON ROOM AIR BS CLEAR
--- NOTE | 2018-01-23 19:26 | NUR ---
RECEIVED REPORT FROM DAY NURSE ORLY RN, PT IN STABLE CONDITION. NO S/S OF DISTRESS NOTED. PT AAOX4, ON ROOM AIR. IV TO L FA 22G, SALINE LOCK, PATENT AND INTACT. 2ND IV TO L FA 18G, SALINE LOCK, PATENT AND INTACT. SKIN IS WARM AND DRY TO TOUCH, INTACT. RR EVEN/UNLABORED. BOWEL SOUNDS PRESENT. INITIAL ASSESSMENT COMPLETED. PLAN OF CARE DISCUSSED WITH PT AT BEDSIDE, VERBALIZED UNDERSTANDING. ALL SAFETY PRECAUTIONS MET, CALL LIGHT WITHIN REACH, BOARD UPDATED, WILL CONTINUE TO MONITOR
[2018-01-23 20:00] VITALS: BP 136/79
[2018-01-23] MEDS: ZOLPIDEM 5 MG TAB PO SCH (20:43)
[2018-01-24] VITALS: BP 128/76
--- NOTE | 2018-01-24 03:26 | NUR ---
HANDOFF REPORT GIVEN TO BENI CRAIN FOR CONTINUITY OF CARE, PT IN STABLE CONDITION
--- NOTE | 2018-01-24 03:26 | NUR ---
ASSUMED CONTINUITY OF CARE, PATIENT SLEEPING COMFORTABLY IN BED. RESPIRATION EVEN AND UNLABORED. IV SALINE LOCK AT THE LEFT AC G18, PATENT AND INTACT. SAFETY MEASURES ENFORCED. BED ON ALARM. NO APPEARANCE OF PAIN NOTED 0/10.
[2018-01-24] MEDS: methylPREDNISolone SS 125 MG/2 ML VIAL IVP SCH ×2 (05:16→13:28)
--- NOTE | 2018-01-24 05:45 | NUR ---
AWAKE, WATCHING TV. DOING WELL WITH THE INCENTIVE SPIROMETER. ENCOURAGED TO USE IT OFTEN.
[2018-01-24 06:32] LABS: HEMATOCRIT 42.8 % (36-52); HEMOGLOBIN 13.8 g/dL (12.0-18.0); MEAN CORPUSCULAR HEMOGLOBIN 29 pg (27-31); MEAN CORPUSCULAR HGB CONC 32 g/dL (33-37); MEAN CORPUSCULAR VOLUME 89 fL (80-94); PLATELET COUNT (AUTO) 339 K/uL (140-450); RED BLOOD CELL COUNT(AUTO) 4.81 MIL/uL (4.20-6.10); RED CELL DISTRIBUTION WIDTH 14.4 % (11.6-13.7); WHITE BLOOD COUNT (AUTO) 20.8 K/uL (4.8-10.8)
[2018-01-24] MEDS: ALBUTEROL SULFATE/IPRATROPIU 3 ML SOL IH SCH ×2 (06:33→12:00)
[2018-01-24 06:39] LABS: ANION GAP 14.3 (8-16); CARBON DIOXIDE 24.9 mmol/L (21-32); CHLORIDE 105 mmol/L (98-107); CREATININE 1.2 mg/dL (0.7-1.3); GLUCOSE 148 mg/dL (74-106); POTASSIUM 4.2 mmol/L (3.5-5.1); SODIUM SERUM 140 mmol/L (136-145); UREA NITROGEN, BLOOD 36 mg/dL (7-18)
[2018-01-24] MEDS: PANTOPRAZOLE 40 MG TABEC PO SCH (06:43)
[2018-01-24 06:44] LABS: MAGNESIUM 2.2 mg/dL (1.8-2.4); PHOSPHORUS 4.3 mg/dL (2.5-4.9)
[2018-01-24] MEDS: BLOOD GLUCOSE MONITORING 1 DEV DEV FS SCH ×2 (06:45→12:05)
--- NOTE | 2018-01-24 07:03 | NUR ---
CONDITION REMAIN STABLE. NPO FOR EGD TODAY. WILL ENDORSE TO AM NURSE FOR CONTINUITY OF CARE.
--- NOTE | 2018-01-24 07:10 | NUR ---
RECEIVED PATIENT REPORT AT BEDSIDE. PATIENT AWAKE, ALERT AND ORIENTED. NO S/S OF DISTRESS. NO C/O PAIN AT THIS TIME. IV LINE NOTED TO THE LEFT FOREARM SALINE LOCKED. PATIENT NPO FOR SCHEDULED EGD TODAY. BED LOWERED WITH CALL LIGHT WITHIN REACH. WILL CONTINUE TO MONITOR
--- NOTE | 2018-01-24 07:30 | NUR ---
ENDORSED TO SARAHI WRIGHT FOR CONTINUITY OF CARE.
[2018-01-24 08:00] VITALS: BP 151/67
[2018-01-24 08:36] LABS: LYMPHOCYTES % (MANUAL) 10 % (20-46); MONOCYTES % (MANUAL) 2 % (5-12)
[2018-01-24] MEDS: METOPROLOL 25 MG TAB PO SCH (08:52)
[2018-01-24] MEDS: ATORVASTATIN 80 MG TAB PO SCH (08:52)
[2018-01-24] MEDS: LISINOPRIL 5 MG TAB PO SCH (08:53)
[2018-01-24] MEDS: AZITHROMYCIN 250 MG TAB PO SCH (08:53)
[2018-01-24] MEDS ORDERED: diphenhydrAMINE 50 MG/ML VIAL ONE (09:14)
[2018-01-24] MEDS ORDERED: MIDAZOLAM 2 MG/2 ML VIAL ONE (09:14)
[2018-01-24] MEDS ORDERED: fentaNYL 0.05 MG/ML VIAL ONE (09:14)
--- NOTE | 2018-01-24 09:25 | NUR ---
PATIENT LEFT THE UNIT FOR EGD
[2018-01-24] MEDS ORDERED: MIDAZOLAM 2 MG/2 ML VIAL IV ONE (09:50)
[2018-01-24] MEDS ORDERED: fentaNYL 0.05 MG/HR PATCH TD SCH (09:50)
[2018-01-24] MEDS ORDERED: fentaNYL 0.05 MG/ML VIAL IVP ONE (09:55)
--- NOTE | 2018-01-24 10:00 | NUR ---
PATIENT BACK FROM EGD. PATIENT AWAKE AND ALERT. NO S/S OF DISTRESS. TEMP 97.9 BP 120/50 HR 61 O2 SAT 95% ON RA
[2018-01-24] MEDS: INSULIN LISPRO SLIDING SCALE 100 UNITS/ML VIAL SUBQ PRN (12:14)
--- NOTE | 2018-01-24 12:30 | NUR ---
PATIENT TOLERATING REGULAR DIET WELL
--- NOTE | 2018-01-24 12:40 | NUR ---
CM NOTE CONCURRENT REVIEW DONE FOR CONTINUED STAY CRITERIA
[2018-01-24] MEDS ORDERED: ASPI-1173 PO (13:53)
[2018-01-24] MEDS ORDERED: LIP80 PO (13:53)
[2018-01-24] MEDS ORDERED: AZIT250T11 PO (13:53)
[2018-01-24] MEDS ORDERED: METH4TAB1 PO (13:53)
[2018-01-24] MEDS ORDERED: DOCU-299 PO (13:53)
[2018-01-24] MEDS ORDERED: LACT1.4C PO (13:54)
[2018-01-24] MEDS ORDERED: OMEP20TC12 PO (13:59)
[2018-01-24] MEDS ORDERED: ALBU0.0912 IH (14:24)
[2018-01-24 16:00] VITALS: BP 127/62
--- NOTE | 2018-01-24 16:20 | NUR ---
PATIENT DISCHARGED TO HOME. DISCHARGE INSTRUCTIONS AND DISCHARGE PRESCRIPTIONS GIVEN. PATIENT VERBALIZED UNDERSTANDING. IV LINE DISCONTINUED. PATIENT LEFT WITH ALL HIS BELONGINGS AND DISCHARGE PAPERS. PATIENT LEFT IN STABLE CONDITION
[2018-01-24] MEDS ORDERED: methylPREDNISolone SS 40 MG/ML VIAL IVP SCH (21:00)
[2018-01-25] MEDS ORDERED: ECOTRIN 81 MG TABEC PO SCH (09:00)
== END 2018-01-24 16:20 | disposition home or self-care (01) | DRG 280 ==
LOC: MED 17:54 → MTU 20:45
PROVIDERS: ADMIT Family Medicine Sports Medicine; ATTEND Family Medicine Sports Medicine
PROC: 0DJ08ZZ Inspection of Upper Intestinal Tract, Via Natural or Artificial Opening Endoscopic (ICD-10-PCS; principal; 2018-01-19)
DX: I21.A1 Myocardial infarction type 2 (principal); N17.0 Acute kidney failure with tubular necrosis; R13.10 Dysphagia, unspecified; E11.65 Type 2 diabetes mellitus with hyperglycemia; E11.51 Type 2 diabetes mellitus with diabetic peripheral angiopathy without gangrene; J44.1 Chronic obstructive pulmonary disease with (acute) exacerbation; E78.5 Hyperlipidemia, unspecified; E66.9 Obesity, unspecified; K21.0 Gastro-esophageal reflux disease with esophagitis; K52.9 Noninfective gastroenteritis and colitis, unspecified; E86.0 Dehydration; F17.210 Nicotine dependence, cigarettes, uncomplicated; I25.10 Atherosclerotic heart disease of native coronary artery without angina pectoris; K29.70 Gastritis, unspecified, without bleeding; K29.80 Duodenitis without bleeding; Z95.1 Presence of aortocoronary bypass graft; Z68.27 Body mass index [BMI] 27.0-27.9, adult; Z90.49 Acquired absence of other specified parts of digestive tract; Z88.5 Allergy status to narcotic agent; Z88.8 Allergy status to other drugs, medicaments and biological substances; Z91.19 Patient's noncompliance with other medical treatment and regimen; Z60.2 Problems related to living alone
CPT/HCPCS: 36415; 70491; 71045; 71260; 74220; 80048; 80053; 81003; 82948; 83036; 83605; 83735; 83880; 84100; 84436; 84443; 84479; 84484; 85025; 85610; 85730; 87040; 87081; 87086; 92526; 93005; 93925; 93970; 94640; 96374; 97140; 99285; J1200; J2060; J2250; J2405; J2930; J3010; J7030; J7613; J7620; J7644; Q0092; Q9967

== ENCOUNTER 2018-01-30 08:40 | Inpatient (IN) | payer OTHER ==
[~2018-01-30] VITALS: Ht 172.7 cm; Wt 81.6 kg
[~2018-01-30 08:40] MED LIST: ALBU0.0912 IH; ASPI-1173 PO; AZIT250T11 PO; DOCU-299 PO; LACT1.4C PO; LIP80 PO; METH4TAB1 PO; OMEP20TC12 PO
--- NOTE | 2018-01-30 08:40 | NUR ---
Patient BIBA BLS, transferred to bed 11. RN evaluating patient at bedside.
[2018-01-30 08:42] VITALS: BP 141/82
--- NOTE | 2018-01-30 08:45 | NUR ---
Dr. Clifford evaluating patient at bedside.
--- NOTE | 2018-01-30 08:48 | NUR ---
72 YO M BIBA w/ c/o hearing voices and shortness of breath. 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 Pt had hx of HTN, DM. Pt complaints of hearing voices and has had thoughts of harming himself, but no plan. He does not know what the voices are telling him. reports that the neighbors called 911 because he felt he couldn't breathe. Pt has allergies to morphine and metformin and reports that he takes atorvastatin for his HTN. Pt a&o x 4. GCS 15. no s/s of acute repiratory distress. 02 sat 97%. Respirations even and unlabored. Pt skin within normal limits. ER MD Clifford notified. Safety precautions in place. Pt needs met at this time. Will continue to monitor.
[2018-01-30] MEDS ORDERED: ALBUTEROL SULFATE/IPRATROPIU 3 ML SOL IH ONE (08:50)
[2018-01-30] MEDS ORDERED: ONDANSETRON 4 MG ODT PO ONE (08:50)
--- NOTE | 2018-01-30 09:03 | NUR ---
X RAY AT BEDSIDE.
--- NOTE | 2018-01-30 09:07 | NUR ---
PT REFUSED TX HR 75 SAT 99 RR 16 BILAT ANT BS CLEAR.
[2018-01-30] MEDS ORDERED: NACL 0.9% 1,000 ML IV ONE (09:15)
[2018-01-30 10:04] LABS: BASOPHILS # (AUTO) 0.6 K/uL (0.00-0.22); BASOPHILS % (AUTO) 3.4 % (0.0-2.0); EOSINOPHILS # (AUTO) 0.1 K/uL (0-0.4); EOSINOPHILS % (AUTO) 0.6 % (0.0-4.0); HEMATOCRIT 51.1 % (36-52); LYMPHOCYTES # (AUTO) 1.8 K/uL (2.0-11.5); LYMPHOCYTES % (AUTO) 10.7 % (20.5-51.1); MEAN CORPUSCULAR HEMOGLOBIN 28 pg (27-31); MEAN CORPUSCULAR HGB CONC 31 g/dL (33-37); MEAN CORPUSCULAR VOLUME 89.2 fL (80-94); MONOCYTES # (AUTO) 0.4 K/uL (0.8-1.0); MONOCYTES % (AUTO) 2.7 % (1.7-9.3); NEUTROPHILS # (AUTO) 13.6 K/uL (1.8-7.7); NEUTROPHILS % (AUTO) 82.6 % (42.2-75.2); PLATELET COUNT (AUTO) 274 K/uL (140-450); RED BLOOD CELL COUNT(AUTO) 5.73 MIL/uL (4.20-6.10); RED CELL DISTRIBUTION WIDTH 14.8 % (11.6-13.7); WHITE BLOOD COUNT (AUTO) 16.5 K/uL (4.8-10.8)
--- NOTE | 2018-01-30 10:44 | NUR ---
Lab at bedside. No new orders at this time. Will continue to monitor.
[2018-01-30 10:45] LABS: ANION GAP 15.3 (8-16); ASPARTATE AMINOTRANSFERASE 19 U/L (15-37); CARBON DIOXIDE 27.9 mmol/L (21-32); CHLORIDE 99 mmol/L (98-107); CREATININE 1.2 mg/dL (0.7-1.3); GLUCOSE 156 mg/dL (74-106); POTASSIUM 4.2 mmol/L (3.5-5.1); SODIUM SERUM 138 mmol/L (136-145); TOTAL BILIRUBIN 0.7 mg/dL (0.0-1.0); UREA NITROGEN, BLOOD 22 mg/dL (7-18)
[2018-01-30 10:46] LABS: ALBUMIN 3.5 g/dL (3.4-5.0)
[2018-01-30] MEDS ORDERED: VANCOMYCIN 1,000 MG in DEXTROSE 5% 250 ML IV ONE (10:50)
[2018-01-30] MEDS ORDERED: PIPERACILLIN/TAZOBACTAM 3.375 GM in DEXTROSE 5% 50 ML IV ONE (10:50)
--- NOTE | 2018-01-30 10:51 | NUR ---
Patient being reevaluated by DR HOBBS at bedside.
[2018-01-30 10:59] LABS: ACETAMINOPHEN < 0.5 ug/ml (10-30); SALICYLATE 3.1 mg/dL (2.8-20.0)
[2018-01-30] MEDS ORDERED: VANCOMYCIN 1,000 MG VIAL ONE (10:59)
[2018-01-30] MEDS ORDERED: PIPERACILLIN/TAZOBACTAM 3.375 GM VIAL IV ONE (10:59)
[2018-01-30] MEDS ORDERED: HYDROcodone/APAP 7.5/325 MG 1 TAB PO PRN (11:00)
[2018-01-30] MEDS ORDERED: ONDANSETRON 4 MG/2 ML VIAL IM/IVP PRN (11:00)
[2018-01-30] MEDS ORDERED: DOCUSATE SODIUM 100 MG GELCAP PO PRN (11:00)
[2018-01-30] MEDS ORDERED: ACETAMINOPHEN 325 MG TAB PO PRN (11:00)
[2018-01-30 11:27] LABS: BARBITURATE, URINE NEG. ng/ml (NEG <=200); BENZODIAZEPINE, URINE NEG. ng/mL (NEG <=200); CANNABINOID, URINE NEG. ng/mL (NEG <=50); COCAINE, URINE NEG. ng/mL (NEG <=300); PHENCYCLIDINE SCREEN,URINE NEG. ng/mL (NEG <=25)
[2018-01-30] MEDS ORDERED: BUDESONIDE 0.25 MG/2 ML NEBU INH SCH ×2 (11:27→21:00)
[2018-01-30] MEDS ORDERED: LACTOBACILLUS RHAMNOSUS GG 1 EACH CAP PO SCH (11:29)
[2018-01-30 11:30] VITALS: BP 135/70
[2018-01-30] MEDS ORDERED: LORATADINE 10 MG TAB PO SCH (11:30)
--- NOTE | 2018-01-30 11:30 | NUR ---
RECEIVED PATIENT FROM ER NURSE WINSOME. PATIENT IN STABLE CONDITION AT THIS TIME. PATIENT'S VITAL SIGNS ARE WITHIN NORMAL LIMITS. PATIENT ALERT AND ORIENTED X4. NO SIGNS OF SUICIDAL IDEATION AT THIS TIME. NO SIGNS OF HALLUCINATIONS. NO COMPLAINTS OF PAIN. PATIENT HAS AN IV 24G ON THE RIGHT HAND. SWABBED PATIENT'S NOSE FOR MRSA CULTURE. WILL CONTINUE TO MONITOR PATIENT.
--- NOTE | 2018-01-30 11:36 | NUR ---
Patient will be admitted to care of Dr. White. Admited to Tele. Will go to room 123-B. Belongings list completed. Report to SARAHI Mcgovern.
--- NOTE | 2018-01-30 11:36 | NUR ---
Pt taken to Tele room 123 B accompanied by SARAHI Singh, SARAHI Sheridan and MAGO Vizcarra. Report given to SARAHI Mcgovern at pt bedside. Pt tolerated transition well.
[2018-01-30 11:46] LABS: APPEARANCE,URINE CLEAR (CLEAR); BILIRUBIN,URINE NEGATIVE (NEGATIVE); BLOOD, URINE NEGATIVE (NEGATIVE); COLOR,URINE YELLOW (YELLOW); LEUKOCYTE ESTERASE ,URINE NEGATIVE (NEGATIVE); NITRITE, URINE NEGATIVE (NEGATIVE); UGLUCOSE NEGATIVE (NEGATIVE)
[2018-01-30 12:33] LABS: PROTHROMBIN TIME 10.2 secs (10.8-13.4)
--- NOTE | 2018-01-30 12:40 | NUR ---
PATIENT'S IV LINE WAS ACCIDENTALLY DISCONTINUED BY PATIENT. WILL ATTEMPT TO RESTART IV LINE.
[2018-01-30] MEDS ORDERED: PANTOPRAZOLE 40 MG TABEC PO SCH (12:53)
[2018-01-30] MEDS ORDERED: methylPREDNISolone SS 40 MG/ML VIAL IVP SCH (13:00)
[2018-01-30] MEDS ORDERED: methylPREDNISolone SS 40 MG in WATER STERILE 1 ML IV SCH (13:00)
[2018-01-30] MEDS ORDERED: QUEtiapine FUMARATE 25 MG TAB PO SCH ×2 (13:20→21:00)
[2018-01-30] MEDS ORDERED: DEXTROSE 50% 50 ML SYR IVP PRN (13:35)
[2018-01-30] MEDS ORDERED: INSULIN LISPRO SLIDING SCALE 100 UNITS/ML VIAL SUBQ PRN (13:35)
[2018-01-30] MEDS ORDERED: SIMETHICONE 80 MG TAB.CHEW PO PRN (13:45)
[2018-01-30 13:50] LABS: CHOL/HDL RATIO 5.5 (1-4.5); FREE T4 (FREE THYROXINE) 0.99 ng/dL (0.76-1.46); MAGNESIUM 2.2 mg/dL (1.8-2.4); PHOSPHORUS 4.3 mg/dL (2.5-4.9); THYROID STIMULATING HORMONE 1.38 uIU/mL (0.34-3.74)
[2018-01-30] MEDS ORDERED: LISINOPRIL 5 MG TAB PO SCH (13:58)
--- NOTE | 2018-01-30 14:00 | NUR ---
PATIENT RESTING IN BED WATCHING TELEVISION. NO COMPLAINTS OF PAIN OR ANY SIGNS OF RESPIRATORY DISTRESS. WILL CONTINUE TO MONITOR PATIENT.
[2018-01-30] MEDS ORDERED: MECLIZINE 25 MG TAB PO PRN (14:20)
[2018-01-30] MEDS ORDERED: ALBUTEROL SULFATE/IPRATROPIU 3 ML SOL IH SCH (15:00)
[2018-01-30 16:00] VITALS: BP 129/71
[2018-01-30] MEDS: BLOOD GLUCOSE MONITORING 1 DEV DEV FS SCH ×2 (16:30→20:29)
[2018-01-30] MEDS: LORazepam 0.5 MG TAB PO PRN ×2 (16:56→23:03)
--- NOTE | 2018-01-30 16:56 | NUR ---
PATIENT SAYS, "I FEEL LIKE I HAVE A LOT OF ENERGY. IT MIGHT BE BECAUSE OF ALL THOSE PILLS". ASKED THE PATIENT IF HE FEELS ANXIOUS AND HE RESPONDED "YES". MEDICATED PATIENT WITH ATIVAN 0.5 MG. WILL CONTINUE TO MONITOR PATIENT.
--- NOTE | 2018-01-30 18:00 | NUR ---
PATIENT RESTING AT THIS TIME. NO COMPLAINTS OF PAIN OR ANY SIGNS OF SUICIDAL IDEATION OR HALLUCINATIONS. NO SIGNS OF RESPIRATORY DISTRESS OR RESPIRATORY DEPRESSION. WILL CONTINUE TO MONITOR PATIENT.
--- NOTE | 2018-01-30 19:05 | NUR ---
GAVE REPORT TO NIGHTSHIFT NURSE AT BEDSIDE. PATIENT IN STABLE CONDITION.
--- NOTE | 2018-01-30 19:06 | NUR ---
RECEIVED REPORT FROM CLEAR COAT SPRAYER RN, PT IS A/OX4, ON ROOM AIR. PT AMBULATES WITH STEADY GAIT. PT HAS NO IV ACCESS, PT SKIN IS INTACT. UPDATED BOARD. DISCUSSED PLAN OF CARE WITH PT, PT VERBALIZED UNDERSTANDING. VITAL SIGNS WITHIN NORMAL LIMITS. PT IN STABLE CONDITION, NO SIGNS OF DISTRESS NOTED. BED IN LOWEST POSITION, CALL LIGHT WITHIN REACH. WILL CONTINUE TO MONITOR.
[2018-01-30 20:00] VITALS: BP 105/52
[2018-01-30] MEDS: LEVOFLOXACIN 750 MG/D5W PREMIX 150 ML IV SCH (20:20)
[2018-01-30] MEDS: NACL 0.9% 1,000 ML IV SCH (20:20)
[2018-01-30] MEDS: traZODone 50 MG TAB PO SCH (20:29)
[2018-01-30] MEDS: FAMOTIDINE 20 MG TAB PO SCH (20:29)
[2018-01-30] MEDS: QUEtiapine FUMARATE 100 MG TAB PO SCH (20:29)
[2018-01-30] MEDS: MONTELUKAST SODIUM 10 MG TAB PO SCH (20:29)
--- NOTE | 2018-01-31 | NUR ---
VITAL SIGNS WITHIN NORMAL LIMITS. PT IN STABLE CONDITION, NO SIGNS OF DISTRESS NOTED. BED IN LOWEST POSITION, CALL LIGHT WITHIN REACH. WILL CONTINUE TO MONITOR.
[2018-01-31] MEDS: NACL 0.9% 1,000 ML IV SCH ×2 (03:38→22:40)
[2018-01-31 04:00] VITALS: BP 125/72
--- NOTE | 2018-01-31 04:00 | NUR ---
VITAL SIGNS WITHIN NORMAL LIMITS. PT IN STABLE CONDITION, NO SIGNS OF DISTRESS NOTED. BED IN LOWEST POSITION, CALL LIGHT WITHIN REACH. WILL CONTINUE TO MONITOR.
[2018-01-31] MEDS: PANTOPRAZOLE 40 MG TABEC PO SCH (06:45)
[2018-01-31] MEDS: BLOOD GLUCOSE MONITORING 1 DEV DEV FS SCH ×4 (06:45→20:42)
--- NOTE | 2018-01-31 07:30 | NUR ---
RECEIVED PATIENT FROM CHEMICAL LAB SUPERVISOR RN. PATIENT AAOX4, DENIES PAIN. VITAL SIGNS TAKEN. NO SUICIDAL IDEATION AND HALLUCINATION AT THIS TIME. PATIENT HAS AN IV 22G ON LEFT FA, INFUSING WELL. NO S/S OF ACUTE DISTRESS ON RM AIR. LUNG SOUND CLEAR TO AUSCULTATION. ON TELE, WILL CONTINUE TO MONITOR PATIENT.
--- NOTE | 2018-01-31 07:31 | NUR ---
ENDORSED PT IN STABLE CONDITION TO DAY SHIFT RN FOR CONTINUITY OF CARE.
[2018-01-31 08:00] VITALS: BP 105/55
--- NOTE | 2018-01-31 08:05 | NUR ---
PT STATED HE SMOKE 1 PACK A DAY. MADE PT AWARE OF THE CORRELATION BETWEEN SMOKING AND COPD. PT REFUSED SMOKING CESSATION AND DOES NOT BELIEVE SMOKING CAUSED HIS SOB. PT STATED HOWEVER HE DOES NOT CRAVE FOR SMOKING AT THIS TIME.
--- NOTE | 2018-01-31 08:30 | NUR ---
PLACED SCD ON PT.
[2018-01-31] MEDS ORDERED: QUEtiapine FUMARATE 25 MG TAB PO SCH (09:00)
[2018-01-31] MEDS: LORATADINE 10 MG TAB PO SCH (09:00)
[2018-01-31] MEDS ORDERED: LISINOPRIL 5 MG TAB PO SCH (09:00)
[2018-01-31] MEDS: LEVOFLOXACIN 750 MG/D5W PREMIX 150 ML IV SCH (09:17)
[2018-01-31] MEDS: LACTOBACILLUS RHAMNOSUS GG 1 EACH CAP PO SCH (09:20)
[2018-01-31] MEDS: ECOTRIN 81 MG TABEC PO SCH (09:21)
[2018-01-31] MEDS: QUEtiapine FUMARATE 100 MG TAB PO SCH (09:21)
[2018-01-31] MEDS: ATORVASTATIN 80 MG TAB PO SCH (09:21)
--- NOTE | 2018-01-31 09:35 | NUR ---
CALLED LAB ABOUT IF PT HAD BLOOD DRAW THIS MORNING. LAB SAID WILL COME SOON.
--- NOTE | 2018-01-31 09:55 | NUR ---
NOTIFIED DR ESTES THAT PT IS HARD STICK, LAB COULD NOT GET BLOOD AND PT REFUSED AFTER ONE TRY. DR ESTES SAID HE WILL CANCEL THE CBC BMP ORDER.
--- NOTE | 2018-01-31 10:30 | NUR ---
PT REQUESTED TO TAKE SCD OFF. EXPLAINED TO PT ABOUT THE BENEFIT AND RISK. PT STILL DONT WANT IT.
--- NOTE | 2018-01-31 11:01 | NUR ---
PATIENT HAS BEEN SCREENED AND CATEGORIZED HIGH NUTRITION RISK. PATIENT WILL BE SEEN WITHIN 1-2 DAYS OF ADMISSION. 01/30/18 - 02/01/[address]
--- NOTE | 2018-01-31 11:09 | NUR ---
PT IV SITE LOOK RED, IV IS INFILTRATED. IV CATH DC'ED, TIP INTACT, PRESSURE APPLIED.
[2018-01-31 12:00] VITALS: BP 95/56
[2018-01-31 14:10] VITALS: BP_SYST 74; BP_SYST 94; BP_SYST 97; BP_DIAS 47; BP_DIAS 57; BP_DIAS 65
--- NOTE | 2018-01-31 14:10 | NUR ---
ORTHOSTATIC BLOOD PRESSURE TAKEN BY PHYSICAL THERAPIST Addendum: 02/01/18 at 1010 by Wilian Altamirano RN DR APARICIO WAS NOTIFIED ABOUT THE OUTCOME.
--- NOTE | 2018-01-31 15:30 | NUR ---
IV ACCESS ESTABLISHED ON RIGHT INDEX FINGER, 24 G. RECONNECT PT TO IVF
[2018-01-31 16:00] VITALS: BP 99/56
--- NOTE | 2018-01-31 16:00 | NUR ---
MANUFACTURING ADVISOR HAS TALKED TO PT ABOUT TRANSFERRING TO SNF. PT SAID HE NEEDS TO THINK ABOUT IT.
--- NOTE | 2018-01-31 16:35 | NUR ---
CM NOTE CLINICAL INFORMATION FAXED TO [facility] / FAX# [phone], ATTN: TYLER #[phone]
--- NOTE | 2018-01-31 18:05 | NUR ---
PT EATING DINNER , NO S/S OF ACUTE DISTRESS. IV PATENT AND INFUSING WELL, ASYMPTOMATIC.
[2018-01-31] MEDS: BUDESONIDE 0.25 MG/2 ML NEBU INH SCH (19:30)
--- NOTE | 2018-01-31 19:33 | NUR ---
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 PT IN STABLE CONDITION
--- NOTE | 2018-01-31 19:35 | NUR ---
;RECEIVED PT FROM KASSANDRA RN PT IS AAOX4 RESTING ON BED DENIES ANYHALLUCINATIONAT THIS TIME ON TELEMETRY SR IV ON RT HAND INFUSING WELL NOT DISTRESS NOTED AT THIS TIME
--- NOTE | 2018-01-31 19:44 | NUR ---
PATIENT REFUSED HHNTX WITH .25MG PULMICORT. NO SOB NOTED. BS ARE CLEAR SATS 97% ROOM AIR
[2018-01-31 20:00] VITALS: BP 97/52
[2018-01-31] MEDS: FAMOTIDINE 20 MG TAB PO SCH (20:47)
[2018-01-31] MEDS: traZODone 50 MG TAB PO SCH (20:47)
[2018-01-31] MEDS: MONTELUKAST SODIUM 10 MG TAB PO SCH (20:48)
--- NOTE | 2018-01-31 21:25 | NUR ---
BLOOD SUGAR TEST TAKEN 138 NOT COVERAGE AND HS SNACK IS PROVIDED, REMAIN STABLE AT THIS TIME
[2018-02-01] VITALS: BP 90/55
--- NOTE | 2018-02-01 | NUR ---
PT SLEEPING WELL NOT DISTRESS NOTED ON TELMETRY SR AT ROOM AIR
--- NOTE | 2018-02-01 02:27 | NUR ---
;REPOSITIONED Q2H IV ON RT HAND INFUSING WELL ON TELMETRY SR VOIDING WELL
[2018-02-01 04:00] VITALS: BP 103/50
--- NOTE | 2018-02-01 04:00 | NUR ---
SPONGE BATH GIVEN LINEN CHANGED PT ON TELEMETRY SR,AT ROOM AIR DENIES ANY DISCOMFORT NOT PAIN ON TELEMETRY SR
[2018-02-01] MEDS: PANTOPRAZOLE 40 MG TABEC PO SCH (06:15)
[2018-02-01 06:19] LABS: T4 (THYROXINE) 7.4 ug/dL (4.5-12.0)
--- NOTE | 2018-02-01 06:45 | NUR ---
BLOOD SUGAR TEST 111 PT REMAIN STABLE SR ON TELEMETRY PT WILL BE ENDODRSED TO DAY SHIFT NURSE FOR CONTINUITY OF CARE
[2018-02-01 06:49] LABS: BASOPHILS # (AUTO) 0.1 K/uL (0.00-0.22); EOSINOPHILS # (AUTO) 0.2 K/uL (0-0.4); EOSINOPHILS % (AUTO) 1.9 % (0.0-4.0); HEMATOCRIT 38.7 % (36-52); HEMOGLOBIN 12.8 g/dL (12.0-18.0); LYMPHOCYTES # (AUTO) 2.6 K/uL (2.0-11.5); LYMPHOCYTES % (AUTO) 20.3 % (20.5-51.1); MEAN CORPUSCULAR HEMOGLOBIN 30 pg (27-31); MEAN CORPUSCULAR HGB CONC 33 g/dL (33-37); MEAN CORPUSCULAR VOLUME 89.3 fL (80-94); MONOCYTES # (AUTO) 1.1 K/uL (0.8-1.0); MONOCYTES % (AUTO) 8.5 % (1.7-9.3); NEUTROPHILS # (AUTO) 8.6 K/uL (1.8-7.7); NEUTROPHILS % (AUTO) 68.3 % (42.2-75.2); PLATELET COUNT (AUTO) 210 K/uL (140-450); RED BLOOD CELL COUNT(AUTO) 4.33 MIL/uL (4.20-6.10); RED CELL DISTRIBUTION WIDTH 14.7 % (11.6-13.7); WHITE BLOOD COUNT (AUTO) 12.6 K/uL (4.8-10.8)
[2018-02-01] MEDS: BLOOD GLUCOSE MONITORING 1 DEV DEV FS SCH ×4 (06:58→21:43)
[2018-02-01] MEDS: BUDESONIDE 0.25 MG/2 ML NEBU INH SCH ×2 (07:30→19:30)
--- NOTE | 2018-02-01 07:30 | NUR ---
RECEIVED PATIENT FROM SENIOR QUALITY CONTROL TECHNICIAN RN. PATIENT AAOX4, DENIES PAIN. VITAL SIGNS TAKEN. NO SUICIDAL IDEATION AND HALLUCINATION AT THIS TIME. PATIENT HAS AN IV 24G ON RIGHT INDEX FINGER, DRESSING DRY AND INTACT, INFUSING WELL, NO SWELLING OR C/O PAIN. NO S/S OF ACUTE DISTRESS ON RM AIR. LUNG SOUND CLEAR TO AUSCULTATION. COUGH INTERMITTENTLY WITH WHITE SPUTUM, ON TELE, WILL CONTINUE TO MONITOR.
[2018-02-01 08:00] VITALS: BP 117/57
[2018-02-01] MEDS: LEVOFLOXACIN 750 MG/D5W PREMIX 150 ML IV SCH (08:08)
[2018-02-01] MEDS: LORATADINE 10 MG TAB PO SCH (08:09)
[2018-02-01] MEDS: ECOTRIN 81 MG TABEC PO SCH (08:10)
[2018-02-01] MEDS: ATORVASTATIN 80 MG TAB PO SCH (08:10)
[2018-02-01] MEDS: LACTOBACILLUS RHAMNOSUS GG 1 EACH CAP PO SCH (08:11)
[2018-02-01 10:00] VITALS: BP_SYST 101; BP_SYST 124; BP_DIAS 57; BP_DIAS 61; BP_DIAS 62
--- NOTE | 2018-02-01 10:00 | NUR ---
ORTHOSTATIC BLOOD PRESSURE TAKEN, NOTIFIED DR APARICIO
--- NOTE | 2018-02-01 11:50 | NUR ---
PT RESTING IN BED, NO S/S OF ACUTE DISTRESS, IV INFUSING WELL. CHECKED PT'S BLOOD SUGAR AND VITALS.
--- NOTE | 2018-02-01 12:00 | NUR ---
I met briefly with Patient to discuss [facility] Patient stated " Yes I thought about it and I do agreed to go " These chart writer informed Patient [facility] and that he will be discharge today. I also Let him know that case specialist will be working on his scheduled discharge and will coordinate the transportation to the SNF as soon as [facility] provides a room number. Patient agreed and thank me for my assistance.
--- NOTE | 2018-02-01 12:42 | NUR ---
TYLER FROM [facility] SAW PATIENT. THEY WILL HAVE A BED FOR HIM TOMORROW.
--- NOTE | 2018-02-01 13:38 | NUR ---
02/01/2018 RD INITIAL ASSESSMENT COMPLETED PLEASE REFER TO NUTRITION ASSESSMENT UNDER CARE ACTIVITY FOR ESTIMATED NUTRITIONAL NEEDS. CONTINUE CARDIAC DIET TOLERATED. RD TO FOLLOW-UP IN 5-7 DAYS PATIENT IS LOW RISK. TOSIN GRAY RD
--- NOTE | 2018-02-01 15:45 | NUR ---
These automatic typewriter inspector met with patient again due to previous meeting with MD who stated that Patient declined SNF and confused about been on agreement previously with these automatic typewriter inspector when discussed during his screen. These automatic typewriter inspector reminded Patient of conversation during the screen today in the am about possible MD recommendations to SNF. Per Patient he was confused and did not remember fully; therefore I reminded Patient of his own statement during the conversation " I will agree to go to SNF only if MD makes recommendations for temporary stay, because I need to go back home and pay my bills" Patient then remember and acknoledged he made that statement however; also express his concern to be placed in a facility for a long period of time. I normalized his concerns and explained again to patient, that SNF will be only a short and temporary stay due to limited insurance approval and MD recommendation to short term of care. Patient still Stated " Well I still have to think about it; I will let you know tomorrow". These automatic typewriter inspector agreed to follow up with Patient's decision next day.
[2018-02-01 16:00] VITALS: BP 127/62
[2018-02-01] MEDS: NACL 0.9% 1,000 ML IV SCH (17:00)
--- NOTE | 2018-02-01 17:09 | NUR ---
PHYSICAL THERAPY CO-SIGN The Physical Therapy Progress Notes documented by Hip Hop Dancer have been reviewed. Reviewed/Co-Signed by: Agueda Shin PT Documentation Done by:NELSON STRANGE UPHOLSTERY DEPARTMENT SUPERVISOR POC REVIEWED W/ UPHOLSTERY DEPARTMENT SUPERVISOR; WILL BENEFIT W/ P.T. AFTER ACUTE STAY PRIOR TO RETURNING HOME; EMPHASIS ON ENERGY CONSERVATION TECH, STAIR MGMT, FALL PREVENTION TECH.
--- NOTE | 2018-02-01 19:30 | NUR ---
ENDORSED PT TO AFTER SCHOOL TUTOR RN. PT IN STABLE CONDITION.
--- NOTE | 2018-02-01 19:31 | NUR ---
Patient's Plan of Care was discussed and reviewed with ACTIVITY THERAPY TEACHER: BENI CRAIN
--- NOTE | 2018-02-01 19:31 | NUR ---
RECD. RESTING IN BED, A/0X3. RESPIRATION EVEN AND UNLABORED. 02 SAT- 95% ON ROOM AIR. IV OF NS AT 60 ML/HR INFUSING, RIGHT HAND G24. ON BILATERAL LEG SEQUENTIALS. PLAN OF CARE FOR THE SHIFT DISCUSSED. VERBALIZED UNDERSTANDING. DENIES PAIN 0/10.
[2018-02-01 20:00] VITALS: BP 112/57
--- NOTE | 2018-02-01 20:55 | NUR ---
LOC AWAKE AND ALERT RESPONSIVE TO UNIX CONSULTANT VERBAL COMMANDS PATIENT REFUSES HHN THERAPY PATIENT STATES "I DON'T WANT IT" BENI/RN NOTIFIED
--- NOTE | 2018-02-01 21:30 | NUR ---
SNACK GIVEN FOR THE NIGHT. ATE 100%.
[2018-02-01] MEDS: MONTELUKAST SODIUM 10 MG TAB PO SCH (21:41)
[2018-02-01] MEDS: FAMOTIDINE 20 MG TAB PO SCH (21:41)
[2018-02-01] MEDS: traZODone 50 MG TAB PO SCH (21:42)
[2018-02-01 23:44] LABS: ALBUMIN 2.5 g/dL (3.4-5.0); ANION GAP 16.7 (8-16); ASPARTATE AMINOTRANSFERASE 15 U/L (15-37); CARBON DIOXIDE 21.5 mmol/L (21-32); CHLORIDE 107 mmol/L (98-107); CREATININE 1.4 mg/dL (0.7-1.3); GLUCOSE 98 mg/dL (74-106); MAGNESIUM 2.2 mg/dL (1.8-2.4); PHOSPHORUS 3.7 mg/dL (2.5-4.9); POTASSIUM 4.2 mmol/L (3.5-5.1); SODIUM SERUM 141 mmol/L (136-145); TOTAL BILIRUBIN 0.4 mg/dL (0.0-1.0); UREA NITROGEN, BLOOD 26 mg/dL (7-18)
[2018-02-02] VITALS: BP 142/63
[2018-02-02 04:00] VITALS: BP 117/55
--- NOTE | 2018-02-02 05:29 | NUR ---
DUE PO MEDICATIONS GIVEN, TOLERATED WELL.
[2018-02-02] MEDS: NACL 0.9% 1,000 ML IV SCH (05:38)
[2018-02-02 06:42] LABS: BASOPHILS # (AUTO) 0.2 K/uL (0.00-0.22); BASOPHILS % (AUTO) 1.2 % (0.0-2.0); EOSINOPHILS # (AUTO) 0.2 K/uL (0-0.4); EOSINOPHILS % (AUTO) 1.7 % (0.0-4.0); HEMATOCRIT 39.1 % (36-52); HEMOGLOBIN 12.7 g/dL (12.0-18.0); LYMPHOCYTES # (AUTO) 2.6 K/uL (2.0-11.5); LYMPHOCYTES % (AUTO) 19.9 % (20.5-51.1); MEAN CORPUSCULAR HEMOGLOBIN 29 pg (27-31); MEAN CORPUSCULAR HGB CONC 33 g/dL (33-37); MEAN CORPUSCULAR VOLUME 90.3 fL (80-94); MONOCYTES # (AUTO) 1.1 K/uL (0.8-1.0); MONOCYTES % (AUTO) 8.6 % (1.7-9.3); NEUTROPHILS % (AUTO) 68.6 % (42.2-75.2); PLATELET COUNT (AUTO) 223 K/uL (140-450); RED BLOOD CELL COUNT(AUTO) 4.33 MIL/uL (4.20-6.10); RED CELL DISTRIBUTION WIDTH 14.7 % (11.6-13.7); WHITE BLOOD COUNT (AUTO) 13.1 K/uL (4.8-10.8)
[2018-02-02] MEDS: PANTOPRAZOLE 40 MG TABEC PO SCH (06:44)
[2018-02-02] MEDS: BLOOD GLUCOSE MONITORING 1 DEV DEV FS SCH (06:53)
--- NOTE | 2018-02-02 07:00 | NUR ---
NO SOB NOTED DURING SHIFT, SAFETY MAINTAINED. ABLE TO SLEEP WELL. CONDITION REMAIN STABLE WILL ENDORSE TO AM NURSE FOR CONTINUITY OF CARE.
--- NOTE | 2018-02-02 07:35 | NUR ---
PATIENT AWAKE AND ALERT. PATIENT REFUSES BREATHING TX. NO RESPIRATORY DISTRESS NOTED AT THIS TIME.
--- NOTE | 2018-02-02 07:37 | NUR ---
RECEIVED REPORT FROM FOOD PREPARATION WORKER NURSE AT BEDSIDE FOR CONT OF CARE. PATIENT RESTING WITH EYES CLOSED EASILY WOKEN. NO ACUTE DISTRESS NOTED. PATIENT RESPONDS APPROPRIATELY TO QUESTIONS. PATIENT WITH RIGHT INDEX FINGER 24G. CALL LIGHT WITHIN REACH. WILL CONT TO MONITOR.
[2018-02-02 08:00] VITALS: BP 100/50
--- NOTE | 2018-02-02 08:00 | NUR ---
PATIENT RESTING WITH EYES CLOSED EASILY WOKEN. NO ACUTE DISTRESS NOTED. PATIENT RESPONDS APPROPRIATELY TO QUESTIONS. PATIENT WITH RIGHT INDEX FINGER 24G. PATENT AND INTACT. INITIAL ASSESSMENT PERFORMED. VS GATHERED. DISCUSSED PLAN OF CARE WITH PATIENT. PATIENT VERBALIZED UNDERSTANDING AND AGREEMENT. CALL LIGHT WITHIN REACH. WILL CONT TO MONITOR.
[2018-02-02 08:48] LABS: ALBUMIN 2.4 g/dL (3.4-5.0); ANION GAP 12.1 (8-16); ASPARTATE AMINOTRANSFERASE 15 U/L (15-37); CARBON DIOXIDE 25.8 mmol/L (21-32); CHLORIDE 107 mmol/L (98-107); CREATININE 1.1 mg/dL (0.7-1.3); GLUCOSE 116 mg/dL (74-106); MAGNESIUM 2.1 mg/dL (1.8-2.4); PHOSPHORUS 3.2 mg/dL (2.5-4.9); POTASSIUM 3.9 mmol/L (3.5-5.1); SODIUM SERUM 141 mmol/L (136-145); TOTAL BILIRUBIN 0.4 mg/dL (0.0-1.0); UREA NITROGEN, BLOOD 19 mg/dL (7-18)
[2018-02-02] MEDS: LEVOFLOXACIN 750 MG/D5W PREMIX 150 ML IV SCH (09:16)
[2018-02-02] MEDS: LORATADINE 10 MG TAB PO SCH (09:16)
[2018-02-02] MEDS: ATORVASTATIN 80 MG TAB PO SCH (09:16)
[2018-02-02] MEDS: ECOTRIN 81 MG TABEC PO SCH (09:16)
[2018-02-02] MEDS: LACTOBACILLUS RHAMNOSUS GG 1 EACH CAP PO SCH (09:16)
--- NOTE | 2018-02-02 09:16 | NUR ---
ADMINISTERED SCHEDULED MEDICATIONS ORDERED. PT TOLERATED WELL. WILL CONT TO MONITOR PT.
--- NOTE | 2018-02-02 10:11 | NUR ---
PATIENT ACCEPTED AT [facility] UNDER DR. Binh RAYO. HE WILL GO TO ROOM 207. [facility], WILL PICK HIM UP BETWEEN 11:30 A.M. AND 12:30 P.M. NELSON MCCLAINLINE WALKER NURSE AWARE. [facility] PHONE [phone]
--- NOTE | 2018-02-02 10:20 | NUR ---
PT NOTES 1020 Patient refused PT tx today, wanting to rest prior to d/c to SNF today. Educated on benefits of mobility and consequences of immobility, but wants to save his energy for his d/c. Nursing aware. Will follow up with PT if not d/c.
--- NOTE | 2018-02-02 10:30 | NUR ---
INFORMED PT THAT HE WILL BE DISCHARGED TO [facility] [phone] PT VERBALIZED UNDERSTANDING AND AGREEMENT. WILL CONT TO MONITOR PT.
[2018-02-02] MEDS ORDERED: SERTRALINE 50 MG TAB PO SCH (11:00)
[2018-02-02] MEDS ORDERED: SERT-146 PO (11:05)
--- NOTE | 2018-02-02 11:20 | NUR ---
DISCUSSED ALL DISCHARGE PAPERWORK WITH PATIENT. PATIENT VERBALIZED UNDERSTANDING AND AGREEMENT. ALL BELONGINGS ACCOUNTED FOR AND IN PT POSSESSION. PATIENT ALERT AND ABLE TO MAKE NEEDS KNOWN. NO ACUTE DISTRESS NOTED. IV SITE TO RIGHT INDEZ FINGER INTACT AND LEFT IN PLACE PT TO RECEIVE IV ATB AT [facility]. ENDORSED REPORT TO FEBRUARY AND ENDORSED ORDER OF [id number] IV DAILY FOR 4 MORE DAYS. ID BANDS REMOVED . WILL FOLLOW UP WITH PATIENT WHEN READY TO LEAVE.
--- NOTE | 2018-02-02 11:30 | NUR ---
PATIENT LEFT UNIT VIA WC ACCOMPANIED BY FURNACE REPAIR MECHANIC NAMES SARIAH WITHOUT DIFFICULTIES.
[2018-02-03] MEDS ORDERED: SERTRALINE 50 MG TAB PO SCH (09:00)
== END 2018-02-02 11:30 | DRG 871 ==
LOC: MED 08:40 → MTU 11:05 → OBSVTOIN 17:29
PROVIDERS: ADMIT Family Medicine Sports Medicine; ATTEND Family Medicine Sports Medicine
DX: A41.9 Sepsis, unspecified organism (principal); G93.41 Metabolic encephalopathy; J96.01 Acute respiratory failure with hypoxia; D68.59 Other primary thrombophilia; E11.69 Type 2 diabetes mellitus with other specified complication; E11.51 Type 2 diabetes mellitus with diabetic peripheral angiopathy without gangrene; I42.9 Cardiomyopathy, unspecified; R45.851 Suicidal ideations; F33.0 Major depressive disorder, recurrent, mild; I95.1 Orthostatic hypotension; G90.9 Disorder of the autonomic nervous system, unspecified; E78.5 Hyperlipidemia, unspecified; F42.9 Obsessive-compulsive disorder, unspecified; J43.9 Emphysema, unspecified; I11.9 Hypertensive heart disease without heart failure; G47.00 Insomnia, unspecified; F17.210 Nicotine dependence, cigarettes, uncomplicated; I25.10 Atherosclerotic heart disease of native coronary artery without angina pectoris; I35.0 Nonrheumatic aortic (valve) stenosis; R91.1 Solitary pulmonary nodule; F41.1 Generalized anxiety disorder; F29 Unspecified psychosis not due to a substance or known physiological condition; K56.41 Fecal impaction; Z88.6 Allergy status to analgesic agent; Z88.8 Allergy status to other drugs, medicaments and biological substances; Z79.82 Long term (current) use of aspirin; Z79.899 Other long term (current) drug therapy; Z95.1 Presence of aortocoronary bypass graft
CPT/HCPCS: 96361; 96365; 99218; 99285; G0378; 36415; 36600; 70450; 71045; 74018; 80053; 81003; 82140; 82150; 82803; 82948; 83036; 83605; 83690; 83735; 83880; 84100; 84436; 84439; 84443; 84479; 84484; 85025; 85610; 85730; 87040; 87081; 93005; 93880; 97110; 97140; 97530; G0480; G0482; J1815; J1956; J2543; J3370; J7030; J7060; J7620; J7626; Q0092; S0119

== ENCOUNTER 2018-06-28 01:55 | Emergency (ER) | payer OTHER ==
[~2018-06-28] VITALS: Ht 172.7 cm; Wt 76.7 kg
[~2018-06-28 01:55] MED LIST changes: -AZIT250T11 PO; -METH4TAB1 PO; +SERT-146 PO
--- NOTE | 2018-06-28 01:58 | NUR ---
PT GUNNAR PAYNES. TAKEN TO BED 4
[2018-06-28 01:59] VITALS: BP 117/73
--- NOTE | 2018-06-28 02:00 | NUR ---
ASSUMED CARE OF PT AT THIS TIME. C/O DIFFICULTY BREATHING X 1 MONTH WORSENING X 1 DAY. NO RESPIRATORY DISTRESS NOTED...PT SPEAKS IN FULL SENTENCES. AAOX4 WITH EVEN AND STEADY GAIT; PATIENT STATES PAIN OF 0/10; VSS; PATIENT POSITIONED FOR COMFORT; HOB ELEVATED; BEDRAILS UP X2; BED DOWN. ER MD MADE AWARE OF PT STATUS. WILL CONTINUE TO MONITOR.
[2018-06-28] MEDS ORDERED: ALBUTEROL SULFATE/IPRATROPIU 3 ML SOL IH ONE (02:05)
[2018-06-28] MEDS ORDERED: MAG SULF 2000 MG/WATER PREMIX 50 ML IV ONE (02:05)
--- NOTE | 2018-06-28 02:16 | NUR ---
Respiratory Therapist at bedside for respiratory intervention.
--- NOTE | 2018-06-28 03:10 | NUR ---
ASSUMED CARE, FROM FRANKIE.PATIENT AWAKE , ALERT AND STILL WITH DIFF OF SWALLOWING, 0/10
--- NOTE | 2018-06-28 03:21 | NUR ---
Dr. Beckford evaluating patient at bedside.
--- NOTE | 2018-06-28 03:30 | NUR ---
RT AT BEDSIDE FOR ABG
--- NOTE | 2018-06-28 03:48 | NUR ---
ALL RESULTS BACK AND NOTED BY ERMD AND FOR D/C
[2018-06-28 03:53] VITALS: BP 118/58
--- NOTE | 2018-06-28 03:53 | NUR ---
Patient discharged with v/s stable. Written and verbal after care instructions given and explained. Patient alert, oriented and verbalized understanding of instructions. Ambulatory with steady gait. All questions addressed prior to discharge. ID band removed. Patient advised to follow up with PMD. Rx of ALBUTEROL.ATROVENT, PREDNISONE given. Patient educated on indication of medication including possible reaction and side effects. Opportunity to ask questions provided and answered.
== END 2018-06-28 03:53 | disposition home or self-care (01) ==
LOC: MED 01:55
DX: J44.1 Chronic obstructive pulmonary disease with (acute) exacerbation (principal); Z76.5 Malingerer [conscious simulation]; E11.9 Type 2 diabetes mellitus without complications; I10 Essential (primary) hypertension; Z88.5 Allergy status to narcotic agent; Z79.1 Long term (current) use of non-steroidal anti-inflammatories (NSAID); Z79.899 Other long term (current) drug therapy
CPT/HCPCS: 36600; 71045; 82803; 93005; 94640; 96365; 99285; J3475; J7620

== ENCOUNTER 2018-07-06 09:57 | Emergency (ER) | payer OTHER ==
[~2018-07-06] VITALS: Ht 172.7 cm; Wt 76.7 kg
[2018-07-06 10:00] VITALS: BP 121/68
--- NOTE | 2018-07-06 10:05 | NUR ---
73M BIBA FROM HOME WITH C/O SOB SINCE 0600 PROGRESSIVELY GETTING WORSE. RR ARE EVEN AND UNLABORED. CLEAR SPEECH WITH FULL SENTENCES. PER [facility] PRINTER MACHINE REPORT, PT WAS FOUND ON SCENE SMOKING A CIGRETTE ON ARRIVAL. PT STS INTERMITTENT NON RADIATING "ALL OVERALL" CP WHILE INSPIRATION. SKIN IS WARM/DRY/COLOR APPRIOPRIATE FOR ETHNICITY. PT IS AOX4 TO PERSON, PLACE, TIME, AND SITUATION. PT CHANGED INTO GOWN AND TO CARDIAC, BP, PULSE, AND PULSE OX MONITORING. NAD. VSS. AWAITING ER MD FULLER. ALL NEEDS MET AT THIS TIME. WILL CONTINUE TO MONITOR.
--- NOTE | 2018-07-06 10:05 | NUR ---
Note undone in EDM - 07/06/18 at 1037 by JAYNA 73M BIBA FROM HOME WITH C/O SOB SINCE 0600 PROGRESSIVELY GETTING WORSE. RR ARE EVEN AND UNLABORED. CLEAR SPEECH WITH SENTENCES. PER [facility] ENVIRONMENTAL MANAGER REPORT, PT WAS FOUND ON SCENE SMOKING A CIGRETTE ON ARRIVAL. PT STS INTERMITTENT NON RADIATING "ALL OVERALL" CP WHILE INSPIRATION. SKIN IS WARM/DRY/COLOR APPRIOPRIATE FOR ETHNICITY. PT IS AOX4 TO PERSON, PLACE, TIME, AND SITUATION. PT CHANGED INTO GOWN AND TO CARDIAC, BP, PULSE, AND PULSE OX MONITORING. NAD. GANNON. AWAITING ER MD FULLER. ALL NEEDS MET AT THIS TIME. WILL CONTINUE TO MONITOR.
[2018-07-06] MEDS ORDERED: ASPIRIN 81 MG TAB.CHEW PO ONE (11:00)
[2018-07-06] MEDS ORDERED: ALBUTEROL 0.083% 2.5 MG/3 ML NEBU INH ONE (11:00)
[2018-07-06] MEDS ORDERED: IPRATROPIUM 0.02% 0.5 MG/2.5 ML NEBU INH ONE (11:00)
[2018-07-06] MEDS ORDERED: NITROGLYCERIN 0.4 MG TAB SL ONE (11:00)
--- NOTE | 2018-07-06 11:10 | NUR ---
ADMITTING DX: SOB AWAKE AND ALERT RESPONSIVE SKIN TONE PINK SATURATION 96% ON SUPPLEMENTAL OXYGEN AT 1 LPM VIA NC HR 71 RR 20 BREATH SOUNDS DECREASED BILATERAL GOOD EQUAL CHEST RISE PATIENT REFUSING HHN THERAPY AND RESPIRATOPRY DRUGS PATIENT STATES "IT DOESN'T DO ANYTHING FOR ME" MONICA/RN AND FREYA/LEAD RN AWARE
--- NOTE | 2018-07-06 11:38 | NUR ---
xray by bedside
--- NOTE | 2018-07-06 11:40 | NUR ---
Malaika Cedillo from [employer] by bedside.
--- NOTE | 2018-07-06 11:40 | NUR ---
pt denies any cp at this time. nad. pt with no complaints. all needs met at this time. awaiting lab/xray results. will continue to monitor.
--- NOTE | 2018-07-06 11:45 | NUR ---
Marble Polisher Hand Notes: I met with Patient to discuss his needs for transportation services. Per Patient he is having difficulty [facility] and picking up his medications in regular basis. I discussed and provided Patient with resources to Access Transportation Services and provided him with a printed application form for patient to complete and mail. Patient agreed and stated that he will fill it up and Mail it as soon as possible in order to receive services. Per Patient he has not gotten any assitance with transportation services in the past. Patient thanked me for the resources and assistance.
[2018-07-06 11:52] LABS: HEMATOCRIT 46.5 % (36-52); HEMOGLOBIN 15.3 g/dL (12.0-18.0); MEAN CORPUSCULAR HEMOGLOBIN 29 pg (27-31); MEAN CORPUSCULAR HGB CONC 33 g/dL (33-37); MEAN CORPUSCULAR VOLUME 87.1 fL (80-94); PLATELET COUNT (AUTO) 248 K/uL (140-450); RED BLOOD CELL COUNT(AUTO) 5.34 MIL/uL (4.20-6.10); RED CELL DISTRIBUTION WIDTH 16.3 % (11.6-13.7); WHITE BLOOD COUNT (AUTO) 14.1 K/uL (4.8-10.8)
[2018-07-06 12:08] LABS: ANION GAP 9.3 (8-16); CARBON DIOXIDE 29.8 mmol/L (21-32); CHLORIDE 105 mmol/L (98-107); CREATININE 1.1 mg/dL (0.7-1.3); GLUCOSE 129 mg/dL (74-106); POTASSIUM 4.1 mmol/L (3.5-5.1); SODIUM SERUM 140 mmol/L (136-145); UREA NITROGEN, BLOOD 38 mg/dL (7-18)
[2018-07-06 12:09] LABS: EOSINOPHILS % (MANUAL) 5 % (0-4); LYMPHOCYTES % (MANUAL) 25 % (20-46); METAMYELOCYTES % 1 % (0-0); MONOCYTES % (MANUAL) 10 % (5-12); MYELOCYTES % 1 % (0-0); PROTHROMBIN TIME 9.3 secs (10.8-13.4)
[2018-07-06 12:13] LABS: ALBUMIN 3.2 g/dL (3.4-5.0); ASPARTATE AMINOTRANSFERASE 18 U/L (15-37); TOTAL BILIRUBIN 0.2 mg/dL (0.0-1.0)
[2018-07-06 13:55] VITALS: BP 121/68
--- NOTE | 2018-07-06 13:56 | NUR ---
Patient discharged with v/s stable. Written and verbal after care instructions given and explained. Patient verbalized understanding. Ambulatory with steady gait. All questions addressed prior to discharge. Advised to follow up with PMD.
== END 2018-07-06 13:56 | disposition home or self-care (01) ==
LOC: MED 09:57
DX: J44.9 Chronic obstructive pulmonary disease, unspecified (principal); F17.200 Nicotine dependence, unspecified, uncomplicated; E11.9 Type 2 diabetes mellitus without complications; I10 Essential (primary) hypertension; Z90.49 Acquired absence of other specified parts of digestive tract; Z95.1 Presence of aortocoronary bypass graft
CPT/HCPCS: 36415; 71045; 80053; 82948; 83880; 84484; 85025; 85610; 85730; 93005; 99285; Q0092; J7613; J7644

== ENCOUNTER 2018-08-24 05:30 | Inpatient (IN) | payer OTHER ==
[~2018-08-24] VITALS: Ht 172.7 cm; Wt 76.7 kg
--- NOTE | 2018-08-24 05:30 | NUR ---
PT PRESENTS TO ED FROM HOME WITH COPD EXACERBATION. BIB EMS ON NEBULIZER AT 8LPM O2SAT OF 97%. BILAT WHEEZING HEARD. COUGH PRESENT. HX 1 PCK SMOKING PER DAY. A&OX4. HOB ELEVATED TO COMFORT. SIDE RAILS UP. DR MONTOYA AT BEDSIDE FOR EVALUATION. VSS. CONTINUE TO MONITOR.
--- NOTE | 2018-08-24 05:30 | NUR ---
PT GUNNAR ALS. TAKEN TO BED 4
--- NOTE | 2018-08-24 05:31 | NUR ---
Dr. Beal evaluating patient at bedside.
[2018-08-24 05:36] VITALS: BP 178/81
[2018-08-24] MEDS ORDERED: NACL 0.9% 1,000 ML IV ONE (05:37)
[2018-08-24] MEDS ORDERED: methylPREDNISolone SS 125 MG in WATER STERILE 2 ML IV ONE (05:40)
[2018-08-24] MEDS ORDERED: ALBUTEROL SULFATE/IPRATROPIU 3 ML SOL IH ONE (05:40)
--- NOTE | 2018-08-24 05:51 | NUR ---
Respiratory Therapist at bedside for respiratory intervention.
--- NOTE | 2018-08-24 05:52 | NUR ---
EKG PERFORMED AT BEDSIDE. PT COVERED IN GOWN DURING PROCEDURE
--- NOTE | 2018-08-24 05:53 | NUR ---
X-Ray at bedside.
[2018-08-24] MEDS ORDERED: LEVOFLOXACIN 750 MG/D5W PREMIX 150 ML IV ONE (06:10)
[2018-08-24 06:17] LABS: HEMATOCRIT 46.2 % (36-52); HEMOGLOBIN 14.9 g/dL (12.0-18.0); RED BLOOD CELL COUNT(AUTO) 5.06 MIL/uL (4.20-6.10); WHITE BLOOD COUNT (AUTO) 12.1 K/uL (4.8-10.8)
[2018-08-24 06:18] LABS: LYMPHOCYTES % (AUTO) 34.7 % (20.5-51.1); MEAN CORPUSCULAR HEMOGLOBIN 30 pg (27-31); MEAN CORPUSCULAR HGB CONC 32 g/dL (33-37); MEAN CORPUSCULAR VOLUME 91.4 fL (80-94); NEUTROPHILS % (AUTO) 55.9 % (42.2-75.2); PLATELET COUNT (AUTO) 278 K/uL (140-450)
--- NOTE | 2018-08-24 06:18 | NUR ---
RT AT BEDSIDE FOR ABG'S
[2018-08-24 06:19] LABS: BASOPHILS # (AUTO) 0.1 K/uL (0.00-0.22); BASOPHILS % (AUTO) 0.6 % (0.0-2.0); EOSINOPHILS # (AUTO) 0.3 K/uL (0-0.4); EOSINOPHILS % (AUTO) 2.2 % (0.0-4.0); LYMPHOCYTES # (AUTO) 4.2 K/uL (2.0-11.5); MONOCYTES # (AUTO) 0.8 K/uL (0.8-1.0); MONOCYTES % (AUTO) 6.6 % (1.7-9.3); NEUTROPHILS # (AUTO) 6.7 K/uL (1.8-7.7)
[2018-08-24 06:20] LABS: PROTHROMBIN TIME 8.7 secs (10.8-13.4)
[2018-08-24 06:28] LABS: APPEARANCE,URINE CLEAR (CLEAR)
[2018-08-24 06:29] LABS: COLOR,URINE YELLOW (YELLOW)
[2018-08-24 06:30] LABS: PH,URINE 6.5 (5.0-9.0)
[2018-08-24 06:33] LABS: BLOOD, URINE NEGATIVE (NEGATIVE); UGLUCOSE NEGATIVE (NEGATIVE)
[2018-08-24 06:34] LABS: BILIRUBIN,URINE NEGATIVE (NEGATIVE); LEUKOCYTE ESTERASE ,URINE NEGATIVE (NEGATIVE); NITRITE, URINE NEGATIVE (NEGATIVE)
[2018-08-24] MEDS ORDERED: DEXT 5% / NACL 0.45% 1,000 ML IV SCH (06:39)
[2018-08-24] MEDS ORDERED: ACETAMINOPHEN 325 MG TAB PO PRN ×2 (06:40→08:35)
[2018-08-24] MEDS ORDERED: LORazepam 2 MG/ML VIAL IM/IVP PRN ×2 (06:40→08:35)
[2018-08-24] MEDS ORDERED: ONDANSETRON 4 MG/2 ML VIAL IM/IVP PRN (06:40)
[2018-08-24] MEDS ORDERED: DOCUSATE SODIUM 100 MG GELCAP PO PRN ×2 (06:40→08:35)
[2018-08-24 07:13] LABS: CARBON DIOXIDE 31.6 mmol/L (21-32); CHLORIDE 104 mmol/L (98-107); CHOL/HDL RATIO 5.5 (1-4.5); GLUCOSE 191 mg/dL (74-106); MAGNESIUM 2.3 mg/dL (1.8-2.4); PHOSPHORUS 3.4 mg/dL (2.5-4.9); POTASSIUM 4.6 mmol/L (3.5-5.1); SODIUM SERUM 141 mmol/L (136-145); THYROID STIMULATING HORMONE 2.45 uIU/mL (0.34-3.74); UREA NITROGEN, BLOOD 40 mg/dL (7-18)
[2018-08-24 07:15] VITALS: BP 149/65
--- NOTE | 2018-08-24 07:17 | NUR ---
REPORT GIVEN AND CARE TRANSFERED TO [facility] ROOM 121B. TRANSFERED VIA [facility] WITH VSS.
[2018-08-24 07:21] LABS: ALBUMIN 3.6 g/dL (3.4-5.0); ASPARTATE AMINOTRANSFERASE 19 U/L (15-37); TOTAL BILIRUBIN 0.2 mg/dL (0.0-1.0)
--- NOTE | 2018-08-24 08:32 | NUR ---
PATIENT HAS BEEN SCREENED AND CATEGORIZED MODERATE NUTRITION RISK. PATIENT WILL BE SEEN WITHIN 3-5 DAYS OF ADMISSION. 08/26/18 08/28/[address]
[2018-08-24] MEDS ORDERED: KETOROLAC 15 MG/ML VIAL IVP PRN ×2 (08:35→23:15)
[2018-08-24] MEDS ORDERED: ZOLPIDEM 5 MG TAB PO PRN (08:35)
[2018-08-24] MEDS ORDERED: ALBUTEROL SULFATE/IPRATROPIU 3 ML SOL IH PRN (08:55)
[2018-08-24] MEDS ORDERED: DEXTROSE 50% 50 ML SYR IVP PRN (09:05)
[2018-08-24] MEDS: FLUTICASONE NASAL 50 MCG/ACTUATION 16 GM BTL NS SCH ×2 (09:20→10:20)
[2018-08-24] MEDS ORDERED: LISINOPRIL 20 MG TAB PO SCH (10:00)
[2018-08-24] MEDS ORDERED: LACTOBACILLUS RHAMNOSUS GG 1 EACH CAP PO SCH (10:00)
[2018-08-24] MEDS ORDERED: ASPIRIN 81 MG TAB.CHEW PO SCH (10:15)
[2018-08-24] MEDS: PANTOPRAZOLE 40 MG TABEC PO SCH (10:17)
[2018-08-24] MEDS: methylPREDNISolone SS 40 MG/ML VIAL IVP SCH ×2 (10:21→21:14)
[2018-08-24] MEDS: NACL 0.9% 1,000 ML IV SCH (10:39)
[2018-08-24] MEDS: BLOOD GLUCOSE MONITORING 1 DEV DEV FS SCH ×3 (11:30→21:22)
[2018-08-24 12:00] VITALS: BP 128/63
[2018-08-24] MEDS ORDERED: metroNIDAZOLE 500 MG/NS PREMIX 100 ML IV SCH (13:00)
[2018-08-24] MEDS: ALBUTEROL SULFATE/IPRATROPIU 3 ML SOL IH SCH ×2 (13:25→19:02)
[2018-08-24] MEDS: CLINDAMYCIN PHOS 600MG/D5W PM 50 ML IV SCH ×2 (13:37→21:41)
--- NOTE | 2018-08-24 13:40 | NUR ---
TOLERATED INCENTIVE SPIROMETRY THERAPY WELL ENCOURAGED PATIENT WITH ACKNOWLEDGEMENT TO USE EVERY 1-2 HOURS WHILE AWAKE SPECIMEN CUP PLACED AT BEDSIDE FOR SPUTUM CULTURE
[2018-08-24] MEDS: INSULIN LISPRO SLIDING SCALE 100 UNITS/ML VIAL SUBQ PRN ×2 (13:41→16:56)
--- NOTE | 2018-08-24 13:42 | NUR ---
PATIENT SITTING IN BED RECEIVING A BREATHING TREATMENT. NO DISTRESS NOTED. DENIES ANY PAIN. SCHEDULED MEDICATIONS DUE GIVEN. SAFETY MEASURES IN PLACE, CALL LIGHT WITHIN REACH. WILL CONTINUE TO MONITOR.
[2018-08-24 14:10] LABS: BARBITURATE, URINE NEG. ng/ml (NEG <=200); BENZODIAZEPINE, URINE NEG. ng/mL (NEG <=200); CANNABINOID, URINE NEG. ng/mL (NEG <=50); COCAINE, URINE NEG. ng/mL (NEG <=300); OPIATE, URINE NEG. ng/mL (NEG <=2000); PHENCYCLIDINE SCREEN,URINE NEG. ng/mL (NEG <=25)
[2018-08-24 16:00] VITALS: BP 135/59
--- NOTE | 2018-08-24 17:14 | NUR ---
AWAKE AND ALERT RESPONSIVE PATIENT REFUSING ARTERIAL BLOOD GAS DRAW TROPHY ASSEMBLER TO ENDORSE TO NOC TROPHY ASSEMBLER CALLED DR CLARY MART [id number] RENATE ZUNIGA MD OUT OF AREA WILL RELAY MESSAGE
[2018-08-24] MEDS: CHLORHEXADINE GLUC 2% CLOTH TP SCH (17:58)
[2018-08-24] MEDS: BUDESONIDE 0.25 MG/2 ML NEBU INH SCH (19:03)
--- NOTE | 2018-08-24 19:12 | NUR ---
PATIENT AWAKE AND ALERT. PATIENT REFUSED ARTERIAL BLOOD GAS DRAW. NOTIFIED SARAHI PACKER AND DR. ROKC
--- NOTE | 2018-08-24 19:29 | NUR ---
GAVE REPORT TO UNIX ARCHITECT NURSE FOR CONTINUITY OF CARE. PATIENT IN STABLE CONDITION
--- NOTE | 2018-08-24 19:30 | NUR ---
RECEIVED BEDSIDE REPORT FROM AM NURSE. PT AWAKE ALERT NOT IN RESPIRATORY DISTRESS NO COMPLAINTS OF PAIN. PT AMBULATORY BUT NEEDS MODERATE ASSISTANCE. TELE PT. SKIN INTACT.IV INFUSING ON L HAND G 22, PATENT. SITE NO INFILTRATION NOTED.PT DNR. PT AT 2LPM O2 VIA NASAL CANNULA. BED AT LOWEST POSITION. CALL LIGHT WITHIN REACH WILL CONTINUE TO MONITOR
--- NOTE | 2018-08-24 19:48 | NUR ---
PT COMPLAINS OF L SIDED CHEST PAIN. ECG READING PER FINAL BLOCK PRESS OPERATOR AT 98BPM. GAVE PAIN MED. WILL CONTINUE TO MONITOR. WILL REASSESS PAIN AND WILL CONTINUE TO MONITOR
[2018-08-24 20:00] VITALS: BP 159/66
[2018-08-24] MEDS ORDERED: ATORVASTATIN 20 MG TAB PO SCH (21:00)
[2018-08-24] MEDS: ATORVASTATIN 20 MG TAB PO SCH (21:15)
[2018-08-24] MEDS ORDERED: ASPIRIN 325 MG TAB PO SCH (21:40)
[2018-08-24] MEDS ORDERED: ENOXAPARIN 80 MG/0.8 ML SYR SUBQ SCH (21:50)
[2018-08-24] MEDS: NITROGLYCERIN 0.4 MG TAB SL PRN ×2 (22:09→22:26)
[2018-08-24] MEDS ORDERED: MORPHINE SULFATE 2 MG/ML SYR ONE (22:25)
--- NOTE | 2018-08-24 22:26 | NUR ---
NITROGLYCERIN ORDERED BY GIVEN SUBLINGUAL.1 TABLET AT A TIME EVERY 15 MINS. TOTAL OF 2. BP STABLE AFTER 2 TABLETS 105/53. AWAITING FOR MORPHINE TO BE PROCESSED BY AFTER HRS PHARMACY. DR AWARE THAT PT IS ALLERGIC TO MORPHINE. PHARMACIST AWARE THAT PT ALLERGIC TO MORPHINE.BUT VERBALIZED BY PT HE CANT REMEMBER IF THAT WAS MORPHINE HE WAS ALLERGIC TO. WENT AHEAD WITH THE ORDERS FOR MORPHINE TO BE GIVEN
--- NOTE | 2018-08-24 23:00 | NUR ---
INFORMED THAT PT IS ALLERGIC TO DYE AND SEAFOODS FOR THE CT PULMONARY ARTERY ANGIOGRAM. PT VERBALIZED THAT PT HAD DIZZINESS AND VOMITING A REACTION TO THE DYE BEFORE.
--- NOTE | 2018-08-24 23:30 | NUR ---
INFORMED DR. BOND OF INCREASED LACTIC ACID 5.7.
[2018-08-24] MEDS: MORPHINE SULFATE 2 MG/ML SYR IVP PRN (23:57)
[2018-08-25] VITALS: BP 125/55
[2018-08-25] MEDS: LORATADINE 10 MG TAB PO SCH ×2 (00:21→08:36)
[2018-08-25] MEDS: CLINDAMYCIN PHOS 600MG/D5W PM 50 ML IV SCH ×3 (04:34→20:35)
[2018-08-25] MEDS: BLOOD GLUCOSE MONITORING 1 DEV DEV FS SCH ×4 (04:54→20:36)
[2018-08-25] MEDS: INSULIN LISPRO SLIDING SCALE 100 UNITS/ML VIAL SUBQ PRN ×4 (05:04→20:34)
[2018-08-25] MEDS ORDERED: HEPARIN PER PHARMACY MC PRN (05:30)
[2018-08-25] MEDS ORDERED: hePARIN / DEXT 5% PREMIX 250 ML IV SCH (05:30)
--- NOTE | 2018-08-25 06:00 | NUR ---
AWAITING RESULTS OF PTT BEFORE INFUSION OF HEPARIN DRIP
[2018-08-25 06:35] LABS: BASOPHILS % (AUTO) 0.1 % (0.0-2.0); HEMATOCRIT 38.8 % (36-52); HEMOGLOBIN 12.5 g/dL (12.0-18.0); LYMPHOCYTES # (AUTO) 1.5 K/uL (2.0-11.5); LYMPHOCYTES % (AUTO) 7.9 % (20.5-51.1); MEAN CORPUSCULAR HEMOGLOBIN 29 pg (27-31); MEAN CORPUSCULAR HGB CONC 32 g/dL (33-37); MEAN CORPUSCULAR VOLUME 90.8 fL (80-94); MONOCYTES # (AUTO) 0.7 K/uL (0.8-1.0); MONOCYTES % (AUTO) 3.7 % (1.7-9.3); NEUTROPHILS # (AUTO) 16.6 K/uL (1.8-7.7); NEUTROPHILS % (AUTO) 88.3 % (42.2-75.2); PLATELET COUNT (AUTO) 253 K/uL (140-450); RED BLOOD CELL COUNT(AUTO) 4.27 MIL/uL (4.20-6.10); RED CELL DISTRIBUTION WIDTH 15.7 % (11.6-13.7); WHITE BLOOD COUNT (AUTO) 18.8 K/uL (4.8-10.8)
[2018-08-25] MEDS: ALBUTEROL SULFATE/IPRATROPIU 3 ML SOL IH SCH ×3 (07:11→19:11)
[2018-08-25] MEDS: BUDESONIDE 0.25 MG/2 ML NEBU INH SCH ×2 (07:11→19:13)
[2018-08-25 07:23] LABS: CARBON DIOXIDE 26.2 mmol/L (21-32); CHLORIDE 114 mmol/L (98-107); CREATININE 1.3 mg/dL (0.7-1.3); GLUCOSE 218 mg/dL (74-106); POTASSIUM 5.2 mmol/L (3.5-5.1); SODIUM SERUM 139 mmol/L (136-145); UREA NITROGEN, BLOOD 40 mg/dL (7-18)
--- NOTE | 2018-08-25 07:25 | NUR ---
ENDORSED PT TO AM NURSE. PT IN STABLE CONDITION. FOR VQ SCAN
[2018-08-25 07:27] LABS: MAGNESIUM 2.2 mg/dL (1.8-2.4); PHOSPHORUS 4.2 mg/dL (2.5-4.9)
--- NOTE | 2018-08-25 07:30 | NUR ---
PATIENT AWAKE, ALERT. RESPIRATION EVEN, UNLABOR ON 2L NC. SKIN DRY AND WARM. IV PATENT AND INTACT. COMPLAINED OF CHEST PAIN 6/10, NON RADIATING, WILL MEDICATE PER ORDER. PLAN OF CARE WAS DISCUSSED WITH PATIENT. BED AT LOW POSITION, SIDE RAILS UP. CALL LIGHT WITHIN REACH
[2018-08-25] MEDS: MORPHINE SULFATE 2 MG/ML SYR IVP PRN ×2 (07:50→16:48)
[2018-08-25] MEDS: NITROGLYCERIN 0.4 MG TAB SL PRN (07:51)
[2018-08-25 08:00] VITALS: BP 125/80
[2018-08-25 08:11] LABS: T4 (THYROXINE) 5.5 ug/dL (4.5-12.0)
[2018-08-25] MEDS ORDERED: NITROGLYCERIN 0.4 MG TAB SL SCH (08:11)
[2018-08-25] MEDS: NACL 0.9% 1,000 ML IV SCH ×2 (08:35→16:36)
[2018-08-25] MEDS: LISINOPRIL 20 MG TAB PO SCH (08:36)
[2018-08-25] MEDS: PANTOPRAZOLE 40 MG TABEC PO SCH (08:37)
[2018-08-25] MEDS: FAMOTIDINE 20 MG TAB PO SCH (08:37)
[2018-08-25] MEDS: ASPIRIN 81 MG TAB.CHEW PO SCH (08:37)
[2018-08-25] MEDS: LACTOBACILLUS RHAMNOSUS GG 1 EACH CAP PO SCH (08:37)
[2018-08-25] MEDS: methylPREDNISolone SS 40 MG/ML VIAL IVP SCH (08:38)
[2018-08-25] MEDS: FLUTICASONE NASAL 50 MCG/ACTUATION 16 GM BTL NS SCH (08:51)
[2018-08-25] MEDS: CHLORHEXADINE GLUC 2% CLOTH TP SCH (08:51)
--- NOTE | 2018-08-25 08:59 | NUR ---
NO CALL FROM [facility] ON STAT CXR PHP ENGINEER UNAWARE ON FLOOR
[2018-08-25] MEDS ORDERED: ENOXAPARIN 80 MG/0.8 ML SYR SUBQ SCH (09:00)
--- NOTE | 2018-08-25 09:05 | NUR ---
ESTEFANIA/MVA OPERATOR AWARE OF NO CALL FOR STAT CXR
[2018-08-25] MEDS ORDERED: SODIUM POLYSTYRENE 15 GM/60 ML UDBTL PO SCH (09:18)
--- NOTE | 2018-08-25 09:30 | NUR ---
PATIENT REFUSED KAYAXELATE. PATIENT WAS EXPLAINED WITH RISKS AND BENEFITS OF MEDICATION. DR. MART WAS MADE AWARE
[2018-08-25] MEDS: hePARIN / DEXT 5% PREMIX 250 ML IV SCH ×2 (09:56→16:48)
--- NOTE | 2018-08-25 10:43 | NUR ---
Technician Automatic Note: Late entry for 08/24/18: I met with patient at bedside. I introduced myself to patient an explained my role as a medical grade shoemaker. Patient was not cooperative during assessment despite me explaining to him numerous times the importance of assessment. Patient was vague about information he provided to me and refused to provide details. He stated he lives alone at home and does not have access to food. He drinks ensure cans. He expressed he is not able to complete ADLs independently and no one visits him at home to assist him with ADLs. He reported he does not have access to transportation and does not take his medication. I attempted multiple times to obtain additional information in order to educate him about community resources and also make referrals to program/s that can assist with home care, transportation, and meals on wheels. However, he refused my assistance. He stated he did not want me to and told me he didn't want to speak with me. I called APS [facility] hotline and spoke with Anne and made an APS report for self neglect, and Director Daneila made aware. I faxed APS report (report #[id number]), fax number . APS report included on patient's chart.
--- NOTE | 2018-08-25 11:07 | NUR ---
Radiology Nurse Note: I faxed inquiry to [facility].
[2018-08-25 12:00] VITALS: BP 116/61
--- NOTE | 2018-08-25 12:19 | NUR ---
Interior Horticulturist Note: Per Malik from [facility] , they will have a bed available for patient tomorrow 08/26/18, room 9B, accepting physician is .
--- NOTE | 2018-08-25 12:30 | NUR ---
PATIENT WAS AWAKE, ALERT. RESPIRATION EVEN, UNLABOR ON ROOM AIR. DENIED PAIN, SOB AT THIS TIME. MEDS WERE GIVEN PER ORDER. CALL LIGHT WITHIN REACH
--- NOTE | 2018-08-25 14:15 | NUR ---
PATIENT WAS TRANSFERRED TO CT SCAN. PATIENT IS STABLE AT THIS TIME
--- NOTE | 2018-08-25 15:30 | NUR ---
PATIENT WAS SLEEPING COMFORTABLY. RESPIRATION EVEN, UNLABOR ON ROOM AIR. NO DISTRESS NOTED AT THIS TIME. CALL LIGHT WITHIN REACH
[2018-08-25 15:59] LABS: ANION GAP 14.5 (8-16); CARBON DIOXIDE 26.6 mmol/L (21-32); CHLORIDE 105 mmol/L (98-107); CREATININE 1.4 mg/dL (0.7-1.3); GLUCOSE 210 mg/dL (74-106); POTASSIUM 5.1 mmol/L (3.5-5.1); SODIUM SERUM 141 mmol/L (136-145); UREA NITROGEN, BLOOD 40 mg/dL (7-18)
[2018-08-25 16:00] VITALS: BP 110/50
--- NOTE | 2018-08-25 18:07 | NUR ---
PATIENT WAS AWAKE, ALERT. RESPIRATION EVEN, UNLABOR ON ROOM AIR. IV PATENT AND INTACT. NO DISTRESS NOTED AT THIS TIME. CALL LIGHT WITHIN REACH
--- NOTE | 2018-08-25 19:29 | NUR ---
RECEIVED REPORT FROM DAY SHIFT NURSE, JOHN, AT PT BEDSIDE. PT IN STABLE CONDITION. PT IS AAOX4. PT IS ON RA. WITH RESPIRATIONS EVEN AND UNLABORED. IV ACCESS IN R HAND 24G AND L HAND 22G WITH IVF RUNNING PER MD ORDERS. IV IS PATENT AND INTACT. PT SKIN IS INTACT. NO C/O PAIN AT THIS TIME. BED IS LOCKED, LOW POSITION WITH SIDE RAILS UP X2. CALL LIGHT IS WITHIN REACH. BOARD UPDATED. WILL CONTINUE TO MONITOR PT.
--- NOTE | 2018-08-25 19:29 | NUR ---
ENDORSEMENT GIVEN TO SENIOR WEB DEVELOPER NURSE. PATIENT IS STABLE AT THIS TIME
[2018-08-25 20:00] VITALS: BP 120/55
[2018-08-25] MEDS: ATORVASTATIN 20 MG TAB PO SCH (20:35)
--- NOTE | 2018-08-25 20:36 | NUR ---
ADMINISTERED SCHEDULED MEDICATIONS. INSULIN COVERAGE GIVEN FOR BS OF 227. PT TOLERATED WELL. ALL NEEDS ARE ET AT THIS TIME. WILL CONTINUE TO MONITOR.
--- NOTE | 2018-08-25 22:03 | NUR ---
PT RESTING COMFORTABLY IN BED. NO SIGNS OR SYMPTOMS OF DISTRESS. WILL CONTINUE TO MONITOR.
--- NOTE | 2018-08-25 23:04 | NUR ---
LAB LATE TO DRAW PTT LABS. SPOKE WITH CAFETERIA TEAM LEADER PORSHA SAYS SHE IS BUSY WITH ER AND CANNOT COME RIGHT NOW. WHEN NEW CAFETERIA TEAM LEADER COMES IT WILL GET DONE.
--- NOTE | 2018-08-25 23:12 | NUR ---
PTT LAB COLLECTED. PT TOLERATED WELL. WILL CONTINUE TO MONITOR .
[2018-08-26] VITALS: BP 142/68
--- NOTE | 2018-08-26 00:35 | NUR ---
PTT RESULTS BACK, 47.2. PER PROTOCOL HEPARIN DRIP TO REMAIN AT SAME RATE. WILL CONTINUE TO MONITOR PT.
--- NOTE | 2018-08-26 02:36 | NUR ---
PT ASLEEP IN BED. NO SIGNS OR SYMPTOMS OF DISTRESS. WILL CONTINUE TO MONITOR.
[2018-08-26 04:00] VITALS: BP 170/81
--- NOTE | 2018-08-26 04:30 | NUR ---
PT BP ELEVATED INFORMED DR ROCK ORDERS TO COME. WILL CONTINUE TO MONITOR PT
[2018-08-26] MEDS ORDERED: hydrALAZINE 20 MG/ML VIAL IVP PRN (04:50)
--- NOTE | 2018-08-26 05:09 | NUR ---
HYDRALAZINE GIVEN FOR ELEVATED BP. PT TOLERATED WELL. NO SIGNS OR SYMPTOMS OF DISTRESS. WILL CONTINUE TO MONITOR.
[2018-08-26] MEDS: BLOOD GLUCOSE MONITORING 1 DEV DEV FS SCH ×4 (05:56→21:18)
--- NOTE | 2018-08-26 05:57 | NUR ---
PT BS CHECKED, 116. NO COVERAGE NEEDED PER MD ORDERS. CV TECH AT BEDSIDE.
[2018-08-26 06:21] LABS: BASOPHILS % (AUTO) 0.1 % (0.0-2.0); HEMATOCRIT 38.9 % (36-52); HEMOGLOBIN 12.7 g/dL (12.0-18.0); LYMPHOCYTES # (AUTO) 3.3 K/uL (2.0-11.5); LYMPHOCYTES % (AUTO) 17.5 % (20.5-51.1); MEAN CORPUSCULAR HEMOGLOBIN 30 pg (27-31); MEAN CORPUSCULAR HGB CONC 33 g/dL (33-37); MEAN CORPUSCULAR VOLUME 90.7 fL (80-94); MONOCYTES # (AUTO) 1.5 K/uL (0.8-1.0); MONOCYTES % (AUTO) 7.8 % (1.7-9.3); NEUTROPHILS # (AUTO) 14.1 K/uL (1.8-7.7); NEUTROPHILS % (AUTO) 74.6 % (42.2-75.2); PLATELET COUNT (AUTO) 234 K/uL (140-450); RED BLOOD CELL COUNT(AUTO) 4.29 MIL/uL (4.20-6.10); WHITE BLOOD COUNT (AUTO) 18.9 K/uL (4.8-10.8)
[2018-08-26 06:47] LABS: CARBON DIOXIDE 28.9 mmol/L (21-32); CHLORIDE 108 mmol/L (98-107); CREATININE 1.2 mg/dL (0.7-1.3); GLUCOSE 114 mg/dL (74-106); POTASSIUM 4.9 mmol/L (3.5-5.1); SODIUM SERUM 145 mmol/L (136-145); UREA NITROGEN, BLOOD 37 mg/dL (7-18)
--- NOTE | 2018-08-26 07:10 | NUR ---
ENDORSED PT TO DAY SHIFT NURSE FOR CONTINUITY OF CARE. PT IN STABLE CONDITION.
[2018-08-26] MEDS ORDERED: CHLORHEXADINE GLUC 2% CLOTH TP SCH (07:14)
[2018-08-26] MEDS: BUDESONIDE 0.25 MG/2 ML NEBU INH SCH ×2 (07:18→19:07)
[2018-08-26] MEDS: ALBUTEROL SULFATE/IPRATROPIU 3 ML SOL IH SCH ×3 (07:18→19:07)
--- NOTE | 2018-08-26 07:30 | NUR ---
RECEIVED PATIENT REPORT AT BEDSIDE. PATIENT AWAKE, ALERT AND ORIENTED. PATIENT ON ROOM AIR. NO S/S OF DISTRESS. NO SOB. PATIENT DENIES ANY PAIN AT THIS TIME. PATIENT ON HEPARIN DRIP AT 1220UNIT/HR INFUSING ON HIS RIGHT HAND. PATIENT ON TELE MONITORING. BED LOWERED WITH CALL LIGHT WITHIN REACH. WILL CONTINUE TO MONITOR
[2018-08-26 08:00] VITALS: BP 110/63
[2018-08-26] MEDS: ASPIRIN 81 MG TAB.CHEW PO SCH (08:18)
[2018-08-26] MEDS: ATORVASTATIN 80 MG TAB PO SCH (08:19)
[2018-08-26] MEDS: LACTOBACILLUS RHAMNOSUS GG 1 EACH CAP PO SCH (08:19)
[2018-08-26] MEDS: PANTOPRAZOLE 40 MG TABEC PO SCH (08:19)
[2018-08-26] MEDS: FAMOTIDINE 20 MG TAB PO SCH (08:20)
[2018-08-26] MEDS: LISINOPRIL 20 MG TAB PO SCH (08:21)
[2018-08-26] MEDS: methylPREDNISolone SS 40 MG/ML VIAL IVP SCH (08:21)
[2018-08-26] MEDS: FLUTICASONE NASAL 50 MCG/ACTUATION 16 GM BTL NS SCH (09:00)
[2018-08-26] MEDS: LORATADINE 10 MG TAB PO SCH (09:00)
[2018-08-26] MEDS: METOPROLOL SUCCINATE 50 MG TABER PO SCH (09:00)
[2018-08-26] MEDS: NACL 0.9% 1,000 ML IV SCH (09:00)
--- NOTE | 2018-08-26 09:20 | NUR ---
PATIENT AMBULATED TO THE BATHROOM TO HAVE A BM
[2018-08-26] MEDS: INSULIN LANTUS 100 UNITS/ML 10 ML VIAL SUBQ SCH (10:21)
[2018-08-26 12:00] VITALS: BP 158/77
[2018-08-26] MEDS: INSULIN LISPRO SLIDING SCALE 100 UNITS/ML VIAL SUBQ PRN ×3 (12:51→21:21)
[2018-08-26] MEDS: hePARIN / DEXT 5% PREMIX 250 ML IV SCH (12:52)
--- NOTE | 2018-08-26 13:00 | NUR ---
PATIENT COMFORTABLY RESTING IN BED, WATCHING TELEVISION. NO S/S OF DISTRESS NOTED
--- NOTE | 2018-08-26 15:42 | NUR ---
PATIENT AWAKE IN BED, WATCHING TELEVISION. NO S/S OF DISTRESS NOTED
[2018-08-26 16:00] VITALS: BP 146/69
--- NOTE | 2018-08-26 19:25 | NUR ---
PATIENT REPORT GIVEN AT BEDSIDE. PATIENT ENDORSED IN STABLE CONDITION
--- NOTE | 2018-08-26 19:30 | NUR ---
RECEIVED REPORT FROM [facility] NURSE WRIGHT AT BEDSIDE FOR CONTINUITY OF CARE. PT AAOX4. PT IS DNR. IV NOTED L HAND 22G SALINE LOCK & HAND 24 G RIGHT HAND SALINE LOCK. NO SOB NO S/S OF DISTRESS ON RA. BED LOWERED CALL LIGHT WITHIN REACH WILL CONTINUE TO MONITOR.
[2018-08-26 20:00] VITALS: BP 112/49
[2018-08-26] MEDS: ZOLPIDEM 5 MG TAB PO PRN (21:18)
[2018-08-27] VITALS: BP 140/72
[2018-08-27] MEDS: NACL 0.9% 1,000 ML IV SCH (03:26)
[2018-08-27 04:00] VITALS: BP 156/77
[2018-08-27] MEDS: BLOOD GLUCOSE MONITORING 1 DEV DEV FS SCH ×4 (06:40→20:25)
[2018-08-27 07:13] LABS: EOSINOPHILS % (AUTO) 0.2 % (0.0-4.0); HEMATOCRIT 38.1 % (36-52); HEMOGLOBIN 12.4 g/dL (12.0-18.0); LYMPHOCYTES # (AUTO) 3.8 K/uL (2.0-11.5); LYMPHOCYTES % (AUTO) 29.5 % (20.5-51.1); MEAN CORPUSCULAR HEMOGLOBIN 29 pg (27-31); MEAN CORPUSCULAR HGB CONC 33 g/dL (33-37); MEAN CORPUSCULAR VOLUME 90.1 fL (80-94); MONOCYTES # (AUTO) 1.4 K/uL (0.8-1.0); MONOCYTES % (AUTO) 10.8 % (1.7-9.3); NEUTROPHILS # (AUTO) 7.6 K/uL (1.8-7.7); NEUTROPHILS % (AUTO) 59.5 % (42.2-75.2); PLATELET COUNT (AUTO) 229 K/uL (140-450); RED BLOOD CELL COUNT(AUTO) 4.23 MIL/uL (4.20-6.10); RED CELL DISTRIBUTION WIDTH 16.1 % (11.6-13.7); WHITE BLOOD COUNT (AUTO) 12.8 K/uL (4.8-10.8)
--- NOTE | 2018-08-27 07:38 | NUR ---
ENDORSED TO DAYSSDFT NURSE FOR CONTINUITY OF CARE.
--- NOTE | 2018-08-27 07:40 | NUR ---
RECEIVED REPORT FROM COLLECTOR OF INTERNAL REVENUE NURSE, PT IS RESTING IN BED, SEMI FOWLERS POSITION, PT IS AAOX4, AMBULATES WITH ASSIST, ON ROOM AIR, IV ON THE LEFT HAND, PATENT, INTACT, FLUSHING WELL, NO S/S OF RESPIRATORY DISTRESS OR DISCOMFORT NOTED, DISCUSSED PLAN OF CARE WITH PT, PT VERBALIZED UNDERSTANDING, SAFETY/FALL PRECAUTIONS ARE IN PLACE, CALL LIGHT WITHIN REACH, WILL CONTINUE TO MONITOR.
[2018-08-27 07:44] LABS: CARBON DIOXIDE 27.7 mmol/L (21-32); CHLORIDE 109 mmol/L (98-107); CREATININE 1.1 mg/dL (0.7-1.3); GLUCOSE 93 mg/dL (74-106); POTASSIUM 3.7 mmol/L (3.5-5.1); SODIUM SERUM 143 mmol/L (136-145); UREA NITROGEN, BLOOD 29 mg/dL (7-18)
--- NOTE | 2018-08-27 07:44 | NUR ---
PATIENT EATING AND VERBALLY REQUESTED TX BE ADMINISTERED AT A LATER TIME. NO SOB OR DISTRESS NOTED ON ROOM AIR. NURSE AT BEDSIDE.
[2018-08-27 08:00] VITALS: BP 168/85
[2018-08-27] MEDS: ALBUTEROL SULFATE/IPRATROPIU 3 ML SOL IH SCH ×3 (08:52→19:31)
[2018-08-27] MEDS: BUDESONIDE 0.25 MG/2 ML NEBU INH SCH ×2 (08:52→19:32)
--- NOTE | 2018-08-27 08:53 | NUR ---
TX ADMINISTERED LATE PER PATIENT'S REQUEST IN FAVOR OF EATING BREAKFAST. NO SOB OR DISTRESS NOTES
[2018-08-27] MEDS: methylPREDNISolone SS 40 MG/ML VIAL IVP SCH (08:59)
[2018-08-27] MEDS: METOPROLOL SUCCINATE 50 MG TABER PO SCH (09:00)
[2018-08-27] MEDS: ATORVASTATIN 80 MG TAB PO SCH (09:00)
[2018-08-27] MEDS: FLUTICASONE NASAL 50 MCG/ACTUATION 16 GM BTL NS SCH (09:00)
[2018-08-27] MEDS: LACTOBACILLUS RHAMNOSUS GG 1 EACH CAP PO SCH (09:01)
[2018-08-27] MEDS: PANTOPRAZOLE 40 MG TABEC PO SCH (09:01)
[2018-08-27] MEDS: ASPIRIN 81 MG TAB.CHEW PO SCH (09:01)
[2018-08-27] MEDS: FAMOTIDINE 20 MG TAB PO SCH (09:17)
[2018-08-27] MEDS: LISINOPRIL 20 MG TAB PO SCH (09:17)
[2018-08-27] MEDS: LORATADINE 10 MG TAB PO SCH (09:18)
[2018-08-27] MEDS: INSULIN LANTUS 100 UNITS/ML 10 ML VIAL SUBQ SCH (09:29)
--- NOTE | 2018-08-27 10:00 | NUR ---
PT RESTING IN BED, NO S/S OF RESPIRATORY DISTRESS OR DISCOMFORT NOTED, CALL LIGHT WITHIN REACH.
[2018-08-27 12:00] VITALS: BP 125/61
[2018-08-27] MEDS: INSULIN LISPRO SLIDING SCALE 100 UNITS/ML VIAL SUBQ PRN ×3 (12:18→20:29)
--- NOTE | 2018-08-27 12:45 | NUR ---
PT SLEEPING IN BED AT THIS TIME, CALL LIGHT WITHIN REACH.
--- NOTE | 2018-08-27 14:20 | NUR ---
TX LATE DUE TO TRANSPORT FROM ER TO CT OF A [id number] PT.
--- NOTE | 2018-08-27 14:44 | NUR ---
08/27/18 RD INITIAL ASSESSMENT COMPLETED PLEASE REFER TO NUTRITION ASSESSMENT UNDER CARE ACTIVITY FOR ESTIMATED NUTRITIONAL NEEDS. RD RECOMMENDATIONS: 1. CONTINUE CCHO 60 GM, CARDIAC DIET TOLERATED. 2. ENCOURAGE ORAL INTAKE FOR ADEQUATE NUTRITION INTAKE. 3. RECOMMEND ADDING GLUCERNA SHAKE BID TO OPTIMIZE NUTRITION INTAKE -EACH GLUCERNA SHAKE PROVIDES 220 KCAL AND 10 GM OF PROTEIN. 4. RD WILL F/U 3-5 DAYS; MODERATE RISK. KATERINA LEMA, RD
[2018-08-27 16:00] VITALS: BP 134/59
--- NOTE | 2018-08-27 18:41 | NUR ---
SPOKE TO J LUIS IN CASE MANAGEMENT TO ASK IF SHE COULD CHECK STATUS ON THE PATIENT'S TRANSFER TO [facility]. J LUIS SAID SHE WOULD CALL [facility] AND LET ME KNOW.
--- NOTE | 2018-08-27 18:53 | NUR ---
Defensive Secondary Coach Notes I call [facility] Spoke to Symone and RN Stated that they have no bed available at this time. I discussed with RN Patient's acceptance to room 9B with accepting MD Iraheta as of 08/26/18. RN Stated that there is no beds at this time. I provided RN with Tele unit number to contact [facility] if bed open up over the weekend. SARAHI Colin and Charge nurse Landy waller.
--- NOTE | 2018-08-27 19:00 | NUR ---
PER J LUIS IN CASE MANAGEMENT SHE SPOKE WITH [facility] AND THERE IS NO BED AVAILABLE AT THIS TIME.
--- NOTE | 2018-08-27 19:26 | NUR ---
ENDORSED PATIENT TO POST SPLITTER NURSE. PATIENT STABLE AT THIS TIME. ALL NEEDS MET.
--- NOTE | 2018-08-27 19:30 | NUR ---
RECEIVED REPORT FROM DAYSHIFT NURSE AT BEDSIDE FOR CONTINUITY OF CARE. PT AAOX4. PT IS DNR. IV NOTED L HAND 22G SALINE LOCK & HAND 24 G RIGHT HAND SALINE LOCK. NO SOB NO S/S OF DISTRESS ON RA. BED LOWERED CALL LIGHT WITHIN REACH WILL CONTINUE TO MONITOR.
[2018-08-27 20:00] VITALS: BP 110/60
[2018-08-27] MEDS: ZOLPIDEM 5 MG TAB PO PRN (20:25)
--- NOTE | 2018-08-27 21:19 | NUR ---
PT ASKED FOR CHOCOLATE PUDDING GAVE PT PUDDING PT IS CURRENTLY RESTING IN BED.
[2018-08-28] VITALS: BP 148/71
--- NOTE | 2018-08-28 | NUR ---
PT SLEEPING NO SOB NO S/S OF DISTRESS ON RA. WILL CONTINUE TO MONITOR.
[2018-08-28 04:00] VITALS: BP 149/79
--- NOTE | 2018-08-28 04:10 | NUR ---
PT AWAKE AND RESTING IN BED. NO SOB NO S/S OF DISTRESS ON RA. WILL CONTINUE TO MONITOR.
[2018-08-28] MEDS: BLOOD GLUCOSE MONITORING 1 DEV DEV FS SCH ×4 (05:31→21:00)
--- NOTE | 2018-08-28 07:13 | NUR ---
ENDORSED REPORT TO DAYSHIFT NURSE AT BEDSIDE FOR CONTINUITY OF CARE.
--- NOTE | 2018-08-28 07:15 | NUR ---
RECEIVED REPORT FROM NUCLEAR WEAPONS CUSTODIAN NURSE, PT IS RESTING IN BED, SEMI FOWLERS POSITION, PT IS AAOX4, AMBULATES WITH ASSIST, ON ROOM AIR, IV ON THE LEFT HAND, PATENT, INTACT, FLUSHING WELL, NO S/S OF RESPIRATORY DISTRESS OR DISCOMFORT NOTED, DISCUSSED PLAN OF CARE WITH PT, PT VERBALIZED UNDERSTANDING, SAFETY/FALL PRECAUTIONS ARE IN PLACE, CALL LIGHT WITHIN REACH, WILL CONTINUE TO MONITOR.
[2018-08-28] MEDS: ALBUTEROL SULFATE/IPRATROPIU 3 ML SOL IH SCH ×3 (07:49→19:25)
[2018-08-28] MEDS: BUDESONIDE 0.25 MG/2 ML NEBU INH SCH ×2 (07:49→19:25)
[2018-08-28 08:00] VITALS: BP 168/77
[2018-08-28] MEDS ORDERED: cefTRIAXone 1,000 MG VIAL ONE (08:59)
[2018-08-28] MEDS: FLUTICASONE NASAL 50 MCG/ACTUATION 16 GM BTL NS SCH (09:00)
[2018-08-28] MEDS: LORATADINE 10 MG TAB PO SCH (09:00)
[2018-08-28] MEDS: ASPIRIN 81 MG TAB.CHEW PO SCH (09:02)
[2018-08-28] MEDS: LACTOBACILLUS RHAMNOSUS GG 1 EACH CAP PO SCH (09:03)
[2018-08-28] MEDS: LISINOPRIL 20 MG TAB PO SCH (09:04)
[2018-08-28] MEDS: PANTOPRAZOLE 40 MG TABEC PO SCH (09:05)
[2018-08-28] MEDS: METOPROLOL SUCCINATE 50 MG TABER PO SCH (09:05)
[2018-08-28] MEDS: ATORVASTATIN 80 MG TAB PO SCH (09:06)
[2018-08-28] MEDS: FAMOTIDINE 20 MG TAB PO SCH (09:07)
[2018-08-28] MEDS: methylPREDNISolone SS 40 MG/ML VIAL IVP SCH (09:10)
--- NOTE | 2018-08-28 09:16 | NUR ---
PATIENT GIVEN 0900 SCHEDULED MEDS. TAKEN WITH WATER AND TOLERATED WELL. LEFT PATIENT IN BED WITH TWO SIDE RAILS UP, BED IN LOW POSITION. CALL LIGHT WITHIN REACH. ALL NEEDS MET AT THIS TIME.
[2018-08-28] MEDS: INSULIN LANTUS 100 UNITS/ML 10 ML VIAL SUBQ SCH (09:27)
--- NOTE | 2018-08-28 11:06 | NUR ---
PT SLEEPING IN RIGHT LATERAL POSITION. CALL LIGHT WITHIN REACH. ALL NEEDS MET AT THIS TIME.
[2018-08-28 12:00] VITALS: BP 157/73
[2018-08-28] MEDS: INSULIN LISPRO SLIDING SCALE 100 UNITS/ML VIAL SUBQ PRN ×2 (12:42→17:23)
--- NOTE | 2018-08-28 12:48 | NUR ---
PATIENT BS CHECKED AND WAS 169. INSULIN HUMALOG GIVEN FOR COVERAGE. 2 UNITS ADMINISTERED TO PATIENT. PATIENT LEFT LYING IN BED. TWO SIDE RAILS UP WITH BED IN LOW POSITION. CALL LIGHT WITHIN REACH. ALL NEEDS MET AT THIS TIME.
[2018-08-28 14:06] LABS: BASOPHILS % (AUTO) 0.2 % (0.0-2.0); EOSINOPHILS % (AUTO) 0.2 % (0.0-4.0); HEMATOCRIT 43.2 % (36-52); HEMOGLOBIN 13.9 g/dL (12.0-18.0); LYMPHOCYTES # (AUTO) 1.3 K/uL (2.0-11.5); LYMPHOCYTES % (AUTO) 11.5 % (20.5-51.1); MEAN CORPUSCULAR HEMOGLOBIN 29 pg (27-31); MEAN CORPUSCULAR HGB CONC 32 g/dL (33-37); MEAN CORPUSCULAR VOLUME 91.3 fL (80-94); MONOCYTES # (AUTO) 0.4 K/uL (0.8-1.0); MONOCYTES % (AUTO) 3.3 % (1.7-9.3); NEUTROPHILS # (AUTO) 9.4 K/uL (1.8-7.7); NEUTROPHILS % (AUTO) 84.8 % (42.2-75.2); PLATELET COUNT (AUTO) 251 K/uL (140-450); RED BLOOD CELL COUNT(AUTO) 4.73 MIL/uL (4.20-6.10); RED CELL DISTRIBUTION WIDTH 16.2 % (11.6-13.7); WHITE BLOOD COUNT (AUTO) 11.1 K/uL (4.8-10.8)
[2018-08-28 14:34] LABS: ANION GAP 7.2 (8-16); CARBON DIOXIDE 29.3 mmol/L (21-32); CHLORIDE 106 mmol/L (98-107); CREATININE 1.2 mg/dL (0.7-1.3); GLUCOSE 178 mg/dL (74-106); POTASSIUM 4.5 mmol/L (3.5-5.1); SODIUM SERUM 138 mmol/L (136-145); UREA NITROGEN, BLOOD 26 mg/dL (7-18)
[2018-08-28 16:00] VITALS: BP 113/62
--- NOTE | 2018-08-28 16:55 | NUR ---
PATIENT RESTING IN BED WATCHING TV. DENIES PAIN. ALL NEEDS ARE MET AT THIS TIME.
--- NOTE | 2018-08-28 17:29 | NUR ---
PATIENT BS CHECKED AND WAS 251. INSULIN HUMALOG GIVEN FOR COVERAGE. 6 UNITS ADMINISTERED TO PATIENT. PATIENT WAS LEFT LYING IN BED. TWO SIDE RAILS UP WITH BED IN LOW POSITION. CALL LIGHT WITHIN REACH. ALL NEEDS MET AT THIS TIME.
--- NOTE | 2018-08-28 18:16 | NUR ---
FAMILY/FRIENDS AT PATIENT BEDSIDE. THEY ASKED WHAT FOODS PATIENT CAN CONSUME. I EDUCATED THEM AND RE-EDUCATED PATIENT ON [facility] DIET AND ITS IMPORTANCE IN ORDER TO MAINTAIN HIS DIABETES. PATIENT WAS LEFT IN BED. ALL NEEDS MET AT THIS TIME. TWO BED RAILS UP. BED IN LOW POSITION, CALL LIGHT WITHIN REACH.
--- NOTE | 2018-08-28 19:42 | NUR ---
ENDORSED PATIENT TO TRANSFER IRON OPERATOR NURSE. PATIENT STABLE AT THIS TIME. ALL NEEDS MET.
--- NOTE | 2018-08-28 19:43 | NUR ---
RECEIVED BEDSIDE REPORT FROM AM NURSE. PT TELE. PT AWAKE, ALERT ORIENTED X 4. NO COMPLAINTS OF PAIN,NO REPPIRATORY DISTRESS. AMBULATORY WITH ASSISTANCE. PT ON SALINE LOCK AT RIGHT HAND, PATENT.FALL PRECAUTION, BED AT LOWEST POSITION, CALL LIGHT WITHIN REACH. WILL CONTINUE TO MONITOR.
[2018-08-28 20:00] VITALS: BP 163/60
--- NOTE | 2018-08-28 21:00 | NUR ---
ACCUCHECK MONITORING DONE. NO GLUCOSE COVERAGE NEEDED. PT COMFORTABLE. NO SIGNS OF RESPIRATORY DISTRESS. STABLE.
[2018-08-28] MEDS ORDERED: HYDROCHLOROTHIAZIDE 25 MG TAB PO SCH (23:05)
[2018-08-28] MEDS: HYDROCHLOROTHIAZIDE 25 MG TAB PO SCH (23:44)
--- NOTE | 2018-08-28 23:44 | NUR ---
ORETIC(HDROCHLOTHIAZIDE)PO ONCE GIVEN AT 2354 NAD NOT AT 2344. CLICKED ON THE WRONG FREQUENCY.BUT UNDO DONE ADMINISTERED 12.5 MG ONCE ONLY. ANOTHER HYDROTHIAZIDE WAS ORDERED BUT TO BE GIVEN TOMORROW AM. AT 9AM PO DAILY.
[2018-08-28] MEDS: ZOLPIDEM 5 MG TAB PO PRN (23:45)
[2018-08-29] VITALS: BP 159/66
--- NOTE | 2018-08-29 03:00 | NUR ---
PT REINSERTED WITH NEW IV LINE ON LEFT FOREARM, PATENT.PT ACCIDENTALLY PULLED OUT GOT CAUGHT IN THE BATHROOM. PT ON HEPLOCK
--- NOTE | 2018-08-29 03:35 | NUR ---
PT VOMITED X1 EPISODE,COFFEE GROUND EMESIS(LIGHT COLORED) WHILE RT SUCTIONING DONE. RT STABLIZED RESPIRATION, NO SOB, STABLE RATE AND RHYTHYM AND PULSE OX. INFORMED DR. Addendum: 08/29/18 at 0349 by Doris John RN MISTAKEN ENTRY FOR A DIFFERENT CLIENT
[2018-08-29 04:00] VITALS: BP 140/50
[2018-08-29] MEDS: BLOOD GLUCOSE MONITORING 1 DEV DEV FS SCH ×3 (05:30→17:23)
[2018-08-29] MEDS: BUDESONIDE 0.25 MG/2 ML NEBU INH SCH (07:08)
[2018-08-29] MEDS: ALBUTEROL SULFATE/IPRATROPIU 3 ML SOL IH SCH ×2 (07:08→13:24)
--- NOTE | 2018-08-29 07:31 | NUR ---
ENDORSED BEDSIDE REPORT TO AM NURSE. PT IN STABLE CONDITION.
--- NOTE | 2018-08-29 07:33 | NUR ---
RECEIVED SBAR REPORT FROM NIGHT RN AT PT BEDSIDE. PATIENT IS ALERT AND ORIENTED. FOLLOWS COMMANDS. NO ACUTE RESPIRATORY DISTRESS NOTED ON ROOM AIR. DENIES PAIN. IV SITE PATENT AND INTACT. ORIENTED TO HOSPITAL ENVIRONMENT. UPDATED ON CURRENT PLAN OF CARE, IN AGREEMENT.
[2018-08-29 08:00] VITALS: BP 146/60
--- NOTE | 2018-08-29 08:20 | NUR ---
PATIENT SEEN BY DR. RAYO AT BEDSIDE, UPDATED PT REGARDING DISCHARGE PLANNING, IN AGREEMENT. NO ACUTE DISTRESS NOTED.
[2018-08-29 08:58] LABS: BASOPHILS # (AUTO) 0.1 K/uL (0.00-0.22); BASOPHILS % (AUTO) 0.6 % (0.0-2.0); EOSINOPHILS # (AUTO) 0.2 K/uL (0-0.4); EOSINOPHILS % (AUTO) 0.9 % (0.0-4.0); HEMATOCRIT 42.1 % (36-52); HEMOGLOBIN 13.7 g/dL (12.0-18.0); LYMPHOCYTES # (AUTO) 4.5 K/uL (2.0-11.5); LYMPHOCYTES % (AUTO) 28.6 % (20.5-51.1); MEAN CORPUSCULAR HEMOGLOBIN 29 pg (27-31); MEAN CORPUSCULAR HGB CONC 33 g/dL (33-37); MONOCYTES # (AUTO) 1.2 K/uL (0.8-1.0); MONOCYTES % (AUTO) 7.7 % (1.7-9.3); NEUTROPHILS # (AUTO) 9.8 K/uL (1.8-7.7); NEUTROPHILS % (AUTO) 62.2 % (42.2-75.2); PLATELET COUNT (AUTO) 250 K/uL (140-450); RED BLOOD CELL COUNT(AUTO) 4.67 MIL/uL (4.20-6.10); RED CELL DISTRIBUTION WIDTH 15.6 % (11.6-13.7); WHITE BLOOD COUNT (AUTO) 15.8 K/uL (4.8-10.8)
[2018-08-29] MEDS: FLUTICASONE NASAL 50 MCG/ACTUATION 16 GM BTL NS SCH (09:00)
[2018-08-29] MEDS ORDERED: ACET-1182 PO (09:14)
[2018-08-29] MEDS ORDERED: LACT10CA PO (09:14)
[2018-08-29] MEDS ORDERED: LANTUS SUBQ (09:14)
[2018-08-29] MEDS ORDERED: FLONAS NS (09:14)
[2018-08-29] MEDS ORDERED: FAMO20TA13 PO (09:14)
[2018-08-29] MEDS ORDERED: HUMSLIDE SUBQ (09:14)
[2018-08-29] MEDS ORDERED: ASPI81CT95 PO (09:14)
[2018-08-29] MEDS ORDERED: ORE25 PO (09:14)
[2018-08-29] MEDS ORDERED: METO50TE2 PO (09:14)
[2018-08-29] MEDS ORDERED: LORA10TA19 PO (09:14)
[2018-08-29] MEDS ORDERED: LIP80 PO (09:14)
[2018-08-29] MEDS ORDERED: DOCU-299 PO (09:14)
[2018-08-29] MEDS ORDERED: GLUC-805 FS (09:14)
[2018-08-29] MEDS ORDERED: NITR0.4T1 SL (09:14)
[2018-08-29] MEDS ORDERED: D50SYR IVP (09:14)
[2018-08-29] MEDS ORDERED: ATI2I IM/IVP (09:14)
[2018-08-29] MEDS ORDERED: LISI-420 PO (09:14)
[2018-08-29 09:17] LABS: ANION GAP 6.8 (8-16); CARBON DIOXIDE 27.7 mmol/L (21-32); CHLORIDE 107 mmol/L (98-107); CREATININE 1.1 mg/dL (0.7-1.3); GLUCOSE 142 mg/dL (74-106); POTASSIUM 3.5 mmol/L (3.5-5.1); SODIUM SERUM 138 mmol/L (136-145); UREA NITROGEN, BLOOD 28 mg/dL (7-18)
[2018-08-29] MEDS: LISINOPRIL 20 MG TAB PO SCH (09:32)
[2018-08-29] MEDS: ATORVASTATIN 80 MG TAB PO SCH (09:33)
[2018-08-29] MEDS: METOPROLOL SUCCINATE 50 MG TABER PO SCH (09:33)
[2018-08-29] MEDS: ASPIRIN 81 MG TAB.CHEW PO SCH (09:33)
[2018-08-29] MEDS: methylPREDNISolone SS 40 MG/ML VIAL IVP SCH (09:33)
[2018-08-29] MEDS: LACTOBACILLUS RHAMNOSUS GG 1 EACH CAP PO SCH (09:33)
[2018-08-29] MEDS: PANTOPRAZOLE 40 MG TABEC PO SCH (09:33)
[2018-08-29] MEDS: LORATADINE 10 MG TAB PO SCH (09:33)
[2018-08-29] MEDS: FAMOTIDINE 20 MG TAB PO SCH (09:34)
[2018-08-29] MEDS: HYDROCHLOROTHIAZIDE 25 MG TAB PO SCH (09:34)
[2018-08-29] MEDS: INSULIN LANTUS 100 UNITS/ML 10 ML VIAL SUBQ SCH (09:46)
--- NOTE | 2018-08-29 10:00 | NUR ---
PATIENT'S FRIEND ADAM AT BEDSIDE, MADE AWARE OF CURRENT PLAN OF CARE WITH PATIENT, IN AGREEMENT. PATIENT TOLERATED AM MEDS AND BREAKFAST. AMBULATORY TO BATHROOM WITH MINIMAL ASSIST.
[2018-08-29] MEDS ORDERED: ROC2I IV (10:01)
[2018-08-29 12:00] VITALS: BP 144/70
[2018-08-29] MEDS: INSULIN LISPRO SLIDING SCALE 100 UNITS/ML VIAL SUBQ PRN ×2 (12:05→17:26)
--- NOTE | 2018-08-29 12:08 | NUR ---
Clock Repairer Note: I called and spoke with Malik from [facility] , per Malik, they are making room changes, therefore, isn't able to provide me with room number patient will be assign to, she stated she is anticipating knowing which room number patient can go to around 3pm today. Malik told me they will for sure have a bed available for patient today.
--- NOTE | 2018-08-29 13:00 | NUR ---
UPDATED PATIENT WITH CURRENT PLAN OF CARE. PATIENT RESTING IN BED, NO ACUTE DISTRESS NOTED.
[2018-08-29 15:09] VITALS: BP 144/70
--- NOTE | 2018-08-29 15:44 | NUR ---
CALLED [facility] AND SPOKE WITH ALANIS. THE PATIENT CAN GO TO ROOM [address] COVARRUBIAS[address] PER DAVID, PATIENT CAN BE TRANSFERED BY [facility] AND WE WILL PAY. Addendum: 08/29/18 at 1546 by Maryjane Lockhart CM ESTEFANIA MCCLAINSUPERVISOR [facility] NURSE AWARE.
[2018-08-29 16:00] VITALS: BP 132/71
--- NOTE | 2018-08-29 16:00 | NUR ---
ARRANGED TRANSPORT WITH [facility]EL[facility] TO GO TO [facility] ASSISTANT PURCHASING MANAGER TIME 183.
--- NOTE | 2018-08-29 16:40 | NUR ---
PATIENT RESTING IN BED. NO ACUTE DISTRESS NOTED. AWARE OF CURRENT PLAN OF CARE, VERBALIZED UNDERSTANDING. DENIES DISCOMFORT.
--- NOTE | 2018-08-29 18:30 | NUR ---
[facility] HERE [place] [facility] [place]PORT CALLED TO RN EZEKIEL, PATIENT TO GO ROOM 26A. PATIENT AND FAMILY MADE AWARE. DISCHARGE TEACHING GIVEN TO PATIENT, VERBALIZED UNDERSTANDING AND PLAN OF CARE, IN AGREEMENT. PATIENT IS ALERT AND ORIENTED. AMBULATORY. PATIENT BEING TRANSPORTED VIA WHEELCHAIR. NO ACUTE DISTRESS NOTED. IV SITE PATENT AND INTACT. FRIEND ADAM NOTIFIED OF DISCHARGE PER PATIENT REQUEST.
== END 2018-08-29 18:45 | DRG 917 ==
LOC: MED 05:30 → MTU 06:47
PROVIDERS: ADMIT General Practice; ATTEND General Practice
DX: T65.891A Toxic effect of other specified substances, accidental (unintentional), initial encounter (principal); A41.9 Sepsis, unspecified organism; J18.9 Pneumonia, unspecified organism; N17.0 Acute kidney failure with tubular necrosis; J44.1 Chronic obstructive pulmonary disease with (acute) exacerbation; I25.110 Atherosclerotic heart disease of native coronary artery with unstable angina pectoris; I10 Essential (primary) hypertension; E11.65 Type 2 diabetes mellitus with hyperglycemia; E11.21 Type 2 diabetes mellitus with diabetic nephropathy; K21.9 Gastro-esophageal reflux disease without esophagitis; F32.9 Major depressive disorder, single episode, unspecified; E78.5 Hyperlipidemia, unspecified; E86.0 Dehydration; Z95.1 Presence of aortocoronary bypass graft; Z88.6 Allergy status to analgesic agent; I35.0 Nonrheumatic aortic (valve) stenosis; I11.9 Hypertensive heart disease without heart failure; E11.51 Type 2 diabetes mellitus with diabetic peripheral angiopathy without gangrene; R06.02 Shortness of breath; Z87.891 Personal history of nicotine dependence; Z88.5 Allergy status to narcotic agent; T38.0X5A Adverse effect of glucocorticoids and synthetic analogues, initial encounter; I65.29 Occlusion and stenosis of unspecified carotid artery; F03.90 Unspecified dementia, unspecified severity, without behavioral disturbance, psychotic disturbance, mood disturbance, and anxiety; Z66 Do not resuscitate
CPT/HCPCS: 36415; 36600; 71045; 71250; 78582; 80048; 80053; 80305; 82803; 82948; 83036; 83605; 83690; 83735; 83880; 84100; 84134; 84436; 84443; 84484; 85025; 85379; 85610; 85730; 87040; 87070; 87081; 87086; 87205; 87804; 93005; 93925; 93970; 94640; 96365; 96375; 97116; 97530; 99285; A9540; J0360; J0696; J1644; J1815; J1885; J1956; J2270; J2920; J2930; J3490; J7030; J7060; J7620; J7626; Q0092